=== PATIENT | male | born 1945 | race Caucasian/White ===

== ENCOUNTER 2024-11-27 14:32 | Emergency (ER) | payer MEDICARE, OTHER, SELFPAY ==
--- OUTSIDE RECORDS SUMMARY | 2024-11-27 14:34 | XMS_ITS | Encounter Summary ---
Author Organization [place] Address [address] [place] [address]. [place] [address] Care Team Providers Care Crack Off Person Name Role Phone No Ref-Primary, Physician Primary Care Provider Destinee Thao PA-C Unavailable [phone] Robert Jenkins MD Unavailable [phone] Robert Jenkins MD Unavailable Luciana Cage PA-C Unavailable Robert Jenkins MD Unavailable Reason for Visit * Reason Onset Date Comments Refill Request 12/01/2021 Sophie Encounter Details Date Type Department Care Team (Late st Contact Info) Description 12/01/2021 Telephone [facility] Heart [address] [place] [phone] Robert Jenkins MD [address] [facility] [address] [place], [place] [address] Refill Request (Nenitaqumarina) Social History Tobacco Use Types Packs/Day Years Used Date Smoking Tobacco: Never Smokeless Tobacco: Never Alcohol Use Standard Drinks/Week Comments Never 0 (1 standard drink = 0.6 oz pur e alcohol) Sex and Gender Information Value Date Recorded Sex Assigned at Not on file Legal Sex Male 3:50 PM CDT Gender Identity Not on file Sexual Orientation Not on file COVID-19 Exposure Response Date Recorded In the last month, have you been in contact with someone who was confirmed or suspected to have Coronavirus / COVID-19? Unable to assess 11/25/2021 10:56 AM SMOKING TOBACCO CUTTER OPERATOR documented as of this encounter Miscellaneous Notes * Telephone Encounter - MemeYelena eden - 12/01/2021 2:31 PM CST [facility] Call Center Phone Message May a detailed message be left on voicemail: yes Reason for Call: Medication Refill Request Has the patient contacted the pharmacy for the refill? Yes Name of medication being requested: Sophie Provider who prescribed the medication: Dr. Jenkins Pharmacy: [facility] [address] [facility], [place] - [address] Date medication is needed: 12/05/21 Action Taken: Message routed to: Other: [place] Travel Screening: Not Applicable ING TOBACCO CUTTER OPERATOR documented in this encounter Plan of Treatment Upcoming Encounters Date Type Department Care Team (Late st Contact Info) Description 11/28/2024 1:30 PM SMOKING TOBACCO CUTTER OPERATOR Office Visit [facility] [address] [facility] [address] [place] [phone] Robert Jenkins MD [address] [place] [id number] documented as of this encounter Visit Diagnoses Not on filedocumented in this encounter Care Teams Crack Off Person Relationship Specialty Start Date End Date No Ref-Primary, Physician PCP - General 07/01/21 Destinee Thao PA-C [address] [facility] [place] [id number] Assigned Heart and Vascular Provider 07/06/21 04/10/22 Robert Jenkins MD [address] [place] [id number] Cardiovascular Disease 11/25/21 Robert Jenkins MD [address] [place] [address] Assigned Heart and Vascular Provider 04/11/22 10/01/23 Luciana Cage PA-C [address] [place] [address] Assigned Heart and Vascular Provider 10/28/23 11/25/23 Robert Jenkins MD [address] [place] [address] Assigned Heart and Vascular Provider 11/26/23 documented as of this encounter
--- OUTSIDE RECORDS SUMMARY | 2024-11-27 14:34 | XMS_ITS | Encounter Summary ---
Author Organization [facility] [place] Address [address] [place] [address]. [place] [address] Care Team Providers Care City Carrier Assistant Name Role Phone No Ref-Primary, Physician Primary Care Provider Robert Jenkins MD Unavailable [phone] Robert Jenkins MD Unavailable [phone] Encounter Details Date Type Department Care Team (Late st Contact Info) Description 11/27/2024 9:30 AM WAREHOUSE ANALYST Lab 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; Nonrheumatic aortic valve stenosis Social History Tobacco Use Types Packs/Day Years Used Date Smoking Tobacco: Never Smokeless Tobacco: Never Alcohol Use Standard Drinks/Week Comments Never 0 (1 standard drink = 0.6 oz pur e alcohol) PHQ-2 Answer Date Recorded PHQ-2 Score 0 05/16/2024 Adolescent Education Answer Date Record ed Getting School Help Needed Not on file 06/26 Sex and Gender Information Value Date Recorded Sex Assigned at Not on file Legal Sex Male 3:50 PM CDT Gender Identity Not on file Sexual Orientation Not on file documented as of this encounter Plan of Treatment Upcoming Encounters Date Type Department Care Team (Late st Contact Info) Description 11/28/2024 1:30 PM WAREHOUSE ANALYST Office Visit 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 BASIC METABOLIC PANEL Routine 11/27/2024 9:25 AM WAREHOUSE ANALYST 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 valve stenosis documented in this encounter Results * ALT (11/27/2024 9:25 AM WAREHOUSE ANALYST) ALT 17 0 - 70 U/L 11/27/2024 10:23 AM WAREHOUSE ANALYST LABORATORY Blood STRUCTURE OF LEFT UPPER LIMB / Unknown Venipuncture / Unknown 11/27/2024 9:25 AM WAREHOUSE ANALYST 11/27/2024 9:25 AM WAREHOUSE ANALYST us Robert Jenkins MD LAB - BLOOD ORDERABLES Fin al Result LABORATORY [facility] Lab [address] Lab (1st floor, no room number) [place] [address], [facility] * (ABNORMAL) Basic metabolic panel (11/27/2024 9:25 AM WAREHOUSE ANALYST) Sodium 139 135 - 145 mmol/L 11/27/2024 10:23 AM WAREHOUSE ANALYST LABORATORY Potassium 4.2 3.4 - 5.3 mmol/L 11/27/2024 10:23 AM WAREHOUSE ANALYST RH LABORATORY Chloride 104 98 - 107 mmol/L 11/27/2024 10:23 AM WAREHOUSE ANALYST RH LABORATORY Carbon Dioxide (CO2) 25 22 - 29 mmol/L 11/27/2024 10:23 AM WAREHOUSE ANALYST LABORATORY Anion Gap 10 7 - 15 mmol/L 11/27/2024 10:23 AM WAREHOUSE ANALYST LABORATORY Urea Nitrogen 19.1 8.0 - 23.0 mg/dL 11/27/2024 10:23 AM WAREHOUSE ANALYST LABORATORY Creatinine 0.80 0.67 - 1.17 mg/dL 11/27/2024 10:23 AM WAREHOUSE ANALYST LABORATORY GFR Estimate 89 >60 mL/min/1.7 3m2 11/27/2024 10:23 AM WAREHOUSE ANALYST LABORATORY Comment:eGFR calculated usin g 2020 CKD-EPI equation. 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
--- OUTSIDE RECORDS SUMMARY | 2024-11-27 14:34 | XMS_ITS | Patient Health Record ---
Author Organization [facility] Megan vela Billing Info Address [address] [place], [place] [id number] Support Name Relationship Address Phone Leif Duval Guarantor Unknown Reason For Referral No Information Plan Of Treatment No Information Insurance Providers Payer Name Payer Address Payer Phone Subscriber Number Group Number Insured Name Patient Relationship to Insured Coverage Start Date Coverage End Date [place] [address] [address] [place], [place] [id number] Leif Duval Self - patient is the insured 7 [employer] [address] [place], [place] [id number] Leif Duval Self - patient is the insured 7
--- OUTSIDE RECORDS SUMMARY | 2024-11-27 14:34 | XMS_ITS | Encounter Summary ---
Author Organization [facility] Address [address] [facility] [place] [address] Care Team Providers Care Obstetrician/Gynecologist Name Role Phone No Ref-Primary, Physician Primary Care Provider Robert Jenkins MD Unavailable [phone] Robert Jenkins MD Unavailable [phone] Encounter Details Date Type Department Care Team (Latest Contact Info) Description 11/21/2024 Travel Social History Tobacco Use Types Packs/Day Years [...] st Contact Info) Description 11/28/2024 1:30 PM DOOR REPAIRER BUS Office Visit [facility] [address] [facility] [address] [place] [address] Robert Jenkins MD [address] [facility] [address] [place], [place] [address] documented as of this encounter Visit Diagnoses Not on filedocumented in this encounter Care Teams Obstetrician/Gynecologist Relationship Specialty Start Date End Date No Ref-Primary, Physician PCP - General 07/01/21 Robert Jenkins MD [address] [place] [address] Cardiovascular Disease 11/25/21 Robert Jenkins MD [address] [place] [address] Assigned Heart and Vascular Provider 11/26/23 documented as of this encounter
--- OUTSIDE RECORDS SUMMARY | 2024-11-27 14:34 | XMS_ITS | Encounter Summary ---
Author Organization [place] Address [address] [facility] [place] [address] Care Team Providers Care Institutional Nutrition Consultant Name Role Phone No Ref-Primary, Physician Primary Care Provider Robert Jenkins MD Unavailable [phone] Robert Jenkins MD Unavailable [phone] Encounter Details Date Type Department Care Team (Latest Contact Info) Description 11/27/2024 Travel Social History Tobacco Use Types Packs/Day [...] st Contact Info) Description 11/28/2024 1:30 PM OPTICAL LABORATORY MANAGER Office Visit [facility] [address] [facility] [address] [place] [address] Robert Jenkins MD [address] [facility] [address] [place], [place] [address] documented as of this encounter Visit Diagnoses Not on filedocumented in this encounter Care Teams Institutional Nutrition Consultant Relationship Specialty Start Date End Date No Ref-Primary, Physician PCP - General 07/01/21 Robert Jenkins MD [address] [place] [address] Cardiovascular Disease 11/25/21 Robert Jenkins MD [address] [place] [address] Assigned Heart and Vascular Provider 11/26/23 documented as of this encounter
--- OUTSIDE RECORDS SUMMARY | 2024-11-27 14:34 | XMS_ITS | Clinical Summary ---
Author Organization [place] Address [address] [place] [address] Care Team Providers Care [facility] Social Worker Name Role Phone No Ref-Primary, Physician Primary Care Provider Robert Jenkins MD Unavailable Robert Jenkins MD Unavailable Allergies No known active allergies Medications atorvastatin (LIPITOR) 40 MG tabletIndications :Coronary artery disease involving [place] coronary artery of [place] heart without angina pectoris Take 1 tablet (40 mg) by mouth daily Appointment required for further refills 90 tablet 3 4 Active sotalol HCl, AF, 80 MG TABSIndications:P aroxysmal atrial fibrillation (H) Take 1 tablet (80 mg) by mouth 3 times daily 270 tablet 3 4 Active apixaban ANTICOAGULANT (ELIQUIS ANTICOAGULANT) 5 MG tabletIndications :PAF (paroxysmal atrial fibrillation) (H) Take 1 tablet (5 mg) by mouth 2 times daily 180 tablet 3 4 Active Active Problems Problem Noted Date Diagnosed Date Impaired fasting glucose 04/02/2022 Pulmonary hypertension 04/02/2022 Coronary artery disease invo lving [place] coronary artery of [place] heart without angina pectoris Overview (06/02/2021): s/p CABG x5 2015: GARRIDO to LAD and diagonal, sequential SVG to 2 branches of OM2, SVG to RCA and MAZE + left atrial appendage ligation Paroxysmal atrial fibrillation Overview (06/02/2021): s/p cryomaze ablation Prostate cancer Nonrheumatic aortic valve stenosis Ascending aorta dilatation Nonrheumatic mitral valve regurgitation Tricuspid valve regurgitation, nonrheumatic NSTEMI (non-ST elevated myocardial infarction) Essential hypertension Mixed hyperlipidemia Osteoarthritis Encounters Date Type Department Care Team Description 11/27/2024 9:30 AM ROLL DOUGH DIVIDER Lab [facility] [address] [place] [phone] Coronary artery disease involving [place] coronary artery of [place] heart without angina pectoris; Nonrheumatic aortic valve stenosis 11/27/2024 Travel 11/23/[address] [place] [phone] Robert Jenkins MD Call to schedule test 11/21/2024 9:10 AM ROLL DOUGH DIVIDER - 11/21/2024 11:59 PM ROLL DOUGH DIVIDER Hospital Encounter [facility] [address] [place] [phone] Robert Jenkins MD Coronary artery disease involving [place] coronary artery of [place] heart without angina pectoris; Nonrheumatic aortic valve stenosis Discharge Disposition: Home or Self Care 11/21/2024 Travel from Last 3 Months Family History Relation Status Comments Father Mother Social History Tobacco Use Types Packs/Day Years Used Date Smoking Tobacco: Never Smokeless Tobacco: Never Tobacco Cessation:Counseling Given: Not Answered Alcohol Use Standard Drinks/Week Comments Never 0 [...] on file Sexual Orientation Not on file Last Filed Vital Signs Vital Sign Reading Time Taken Comments Blood Pressure 128/66 05/16/2024 12:30 PM CDT Pulse 51 05/16/2024 12:30 PM CDT Temperature - - Respiratory Rate - - Oxygen Saturation 96% 05/16/2024 12: 30 PM CDT Inhaled Oxygen Concentration - - Weight 85.1 kg (187 lb 11.2 oz) 024 12:30 PM CDT Height 188 cm (6' 2) 05/16/2024 12:30 PM CDT Body Mass Index 24.1 05/16/2024 12:30 PM CDT Plan of Treatment Upcoming Encounters Date Type Department Care Team (Late st Contact Info) Description 11/28/2024 1:30 PM ROLL DOUGH DIVIDER Office Visit [facility] [address] [place] [phone] Robert Jenkins MD [address] [place] [id number] Health Maintenance Due Date Last Done Comments ADVANCE CARE PLANNING 1945 ANNUAL REVIEW OF HM ORDERS 1945 ZOSTER IMMUNIZATION (1 of 2) 1994 DTAP/TDAP/TD IMMUNIZATION (1 - Tdap) 10/05/2003 10/04/2003 FALL RISK ASSESSMENT 2009 Pneumococcal Vaccine: 50+ Years (2 of 2 - PPSV23) 10/05/2016 08/10/2016 RSV VACCINE (1 - 1-dose 75+ series) 2019 MEDICARE ANNUAL WELLNESS VISIT 10/20/2019 10/20/2018 COVID-19 Vaccine ( - season) 2024 10/21/2021, 12/13/2020, 11/15/2020 INFLUENZA VACCINE (#1) 2024 , 08/06/2022, 07/14/2019, Additional history exists PHQ-2 (once per calendar year) 2024 05/16/2024, 05/24/2023 LIPID 05/15/2025 05/15/2024, 05/04, 04/02/2022, Additional history exists BMP 11/27/2025 11/27/2024, 05/04, 05/21/2023, Additional history exists GLUCOSE 11/27/2027 11/27/2024, 05/04, 05/21/2023, Additional history exists HPV IMMUNIZATION Aged Out No longer e ligible based on patient's age to complete this topic MENINGITIS IMMUNIZATION Aged Out No l onger eligible based on patient's age to complete this topic Procedures Procedure Name Priority Date/Time Associated Diagnosis Comments ALT Routine 11/27/2024 9:25 AM ROLL DOUGH DIVIDER Coronary artery disease involving [place] coronary artery of [place] heart without angina pectoris Nonrheumatic aortic valve stenosis BASIC METABOLIC PANEL Routine 11/27/2024 9:25 AM ROLL DOUGH DIVIDER Coronary artery disease involving [place] coronary artery of [place] heart without angina pectoris Nonrheumatic aortic valve stenosis ECHO COMPLETE Routine 11/21/2024 10:06 AM ROLL DOUGH DIVIDER Coronary artery disease involving [place] coronary artery of [place] heart without angina pectoris Nonrheumatic aortic valve stenosis LIPID PROFILE Routine 05/15/2024 9:03 AM CDT Coronary artery disease involving [place] coronary artery of [place] heart without angina pectoris from Last 3 Months or Most Recently Relevant to Health Maintenance Results * ALT (11/27/2024 9:25 AM ROLL DOUGH DIVIDER) ALT 17 0 - 70 U/L 11/27/2024 10:23 AM ROLL DOUGH DIVIDER LABORATORY Blood STRUCTURE OF LEFT UPPER LIMB / Unknown Venipuncture / Unknown 11/27/2024 9:25 AM ROLL DOUGH DIVIDER 11/27/2024 9:25 AM ROLL DOUGH DIVIDER Robert Jenkins MD LAB - BLOOD ORDERABLES Fin al Result LABORATORY [facility] [address] Lab (1st floor, no room number) [place] [address], [facility] * (ABNORMAL) Basic metabolic panel (11/27/2024 9:25 AM ROLL DOUGH DIVIDER) Sodium 139 135 - 145 mmol/L 11/27/2024 10:23 AM ROLL DOUGH DIVIDER LABORATORY Potassium 4.2 3.4 - 5.3 mmol/L 11/27/2024 10:23 AM ROLL DOUGH DIVIDER LABORATORY Chloride 104 98 - 107 mmol/L 11/27/2024 10:23 AM [facility] Carbon Dioxide (CO2) 25 22 - 29 mmol/L 11/27/2024 10:23 AM [facility] Anion Gap 10 7 - 15 mmol/L 11/27/2024 10:23 AM [facility] Urea Nitrogen 19.1 8.0 - 23.0 mg/dL 11/27/2024 10:23 AM [facility] Creatinine 0.80 0.67 - 1.17 mg/dL 11/27/2024 10:23 AM [facility] GFR Estimate 89 >60 mL/min/1.7 3m2 11/27/2024 10:23 AM [facility] Comment:eGFR calculated usin 2020 CKD-EPI equation. Calcium 9.3 8.8 - 10.4 mg/dL 11/27/2024 10:23 AM [facility] Glucose 104(H) 70 - 99 mg/dL 11/27/2024 10:23 AM [facility] Blood STRUCTURE OF LEFT UPPER LIMB / Unknown Venipuncture / Unknown 11/27/2024 9:25 AM ROLL DOUGH DIVIDER 11/27/2024 9:25 AM ROLL DOUGH DIVIDER Robert Jenkins MD LAB - BLOOD ORDERABLES Fin al Result [facility] Acute Care Lab [address] Lab (1st floor, no room number) [place] [address], [facility] * ECHO COMPLETE (11/21/2024 10:06 AM ROLL DOUGH DIVIDER) LVEF 55-60% CARDIOLOGY RESULTS Anatomical Region Laterality Modality Echocardiography 11/21/2024 9:20 AM ROLL DOUGH DIVIDER Narrative 11/21/2024 10:16 AM ROLL DOUGH DIVIDER [id number]^ANRDEA^FLO [facility] Echocardiography Laboratory [address] [place] [address] Name: SOFYA FREEMAN : 1945 Study Date: 11/21/2024 09:20 AM Age: 79 yrs Gender: Male Patient Location: [facility] Reason For Study: Coronary artery disease involving [place] coronary artery of joaquín Ordering Physician: ROBERT JENKINS Referring Physician: ROBERT JENKINS Performed By: Lyle Marvin RDCS BSA: 2.1 m2 Height: 74 in Weight: 180 lb BP: 137/87 mmHg Procedure Echocardiogram with two-dimensional, color and spectral Doppler. Interpretation Summary Left ventricular systolic function is normal.The visual ejection fraction is 55-60%.Septal motion is consistent with post-operative state. The right ventricular systolic function is normal. Moderate valvular aortic stenosis-peak aortic valve velocity 3.46 m/s, mean gradient 26 mmHg, aortic valve area 1.3 cm There is moderate (2+) aortic regurgitation. There is moderate (2+) tricuspid regurgitation. Pulmonary hypertension- RVSP 36 mm hg +RA. 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 Echo dated 05/09 2024, moderate aortic valve stenosis noted with mean gradients of 21 mmHg, moderate aortic regurgitation noted and ascending aorta was noted 4.7 cm Left Ventricle The left ventricle is normal in size. There is mild concentric left ventricular hypertrophy. Left ventricular systolic function is normal. The visual ejection fraction is 55-60%. Septal motion is consistent with post- operative state. Right Ventricle The right ventricle is normal size. The right ventricular systolic function is normal. Atria The left atrium is mildly dilated. Right atrial size is normal. There is no color Doppler evidence of an atrial shunt. Mitral Valve There is mild mitral annular calcification. There is mild (1+) mitral regurgitation. Tricuspid Valve There is moderate (2+) tricuspid regurgitation. The right ventricular systolic pressure is approximated at 36mmHg plus the right atrial pressure. Pulmonary hypertension. Aortic Valve There is moderate (2+) aortic regurgitation. Moderate valvular aortic stenosis. Peak aortic valve velocity 3.46 m/s, mean gradient 26 mmHg, aortic valve area 1.3 cm . Pulmonic Valve There is no pulmonic valvular stenosis. Vessels Aortic root dilatation is present. 3.9 cm. 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 Pericardium There is no pericardial effusion. Rhythm The rhythm was atrial fibrillation. MMode/2D Measurements & Calculations IVSd: 1.3 cm LVIDd: 4.5 cm LVIDs: 3.4 cm LVPWd: 1.1 cm FS: 25.5 % LV mass(C)d: 201.2 grams LV mass(C)dI: 96.8 grams/m2 Ao root diam: 3.9 cm LVOT diam: 2.4 cm LVOT area: 4.6 cm2 Ao root diam index Ht(cm/m): 2.1 Ao root diam index BSA (cm/m2): 1.9 LA Volume (BP): 76.9 ml LA Volume Index (BP): 37.0 ml/m2 RV Base: 3.6 cm RWT: 0.51 TAPSE: 1.8 cm Time Measurements Aortic HR: 52.0 BPM Doppler Measurements & Calculations MV E max daniel: 104.8 cm/sec Ao V2 max: 309.0 cm/sec Ao max P.3 mmHg Ao V2 mean: 216.2 cm/sec Ao mean P.8 mmHg Ao V2 VTI: 79.6 cm IGNACIO(I,D): 1.3 cm2 IGNACIO(V,D): 1.4 cm2 AI P1/2t: 667.9 msec LV V1 max P.5 mmHg LV V1 max: 94.0 cm/sec LV V1 VTI: 23.1 cm CO(LVOT): 5.5 l/min CI(LVOT): 2.6 l/min/m2 SV(LVOT): 105.8 ml SI(LVOT): 50.9 ml/m2 PA acc time: 0.10 sec TR max daniel: 256.3 cm/sec TR max P.3 mmHg AV Daniel Ratio (DI): 0.30 IGNACIO Index (cm2/m2): 0.64 E/E' av.1 Lateral E/e': 5.6 Medial E/e': 16.6 RV S Daniel: 12.5 cm/sec Report approved by: Rigo Guzman MD on 11/21/2024 10:16 AM Procedure Note Rigo Guzman MD - 11/21/2024 [id number]^ANDREA^ROBERT^[facility] Echocardiography Laboratory [address] [place] [address] Name: SOFYA FREEMAN : 1945 Study Date: 11/21/2024 09:20 AM Age: 79 yrs Gender: Male Patient Location: [facility] Reason For Study: Coronary artery disease involving [place] coronary arteryof joaquín Ordering Physician: ROBERT JENKINS Referring Physician: ROBERT JENKINS Performed By: Lyle Marvin RDCS BSA: 2.1 m2 Height: 74 in Weight: 180 lb BP: 137/87 mmHg Procedure Echocardiogram with two-dimensional, color and spectral Doppler. Interpretation Summary Left ventricular systolic function is normal.The visual ejection fractionis 55-60%.Septal motion is consistent with post-operative state. The right ventricular systolic function is normal. Moderate valvular aortic stenosis-peak aortic valve velocity 3.46 m/s,mean gradient 26 mmHg, aortic valve area 1.3 cm There is moderate (2+)aortic regurgitation. There is moderate (2+) tricuspid regurgitation. Pulmonary hypertension- RVSP 36 mm hg +RA. 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 Echo dated 05/09 2024, moderate aortic valve stenosis noted with mean gradients of 21 mmHg, moderate aortic regurgitation noted and ascendingaorta was noted 4.7 cm Left Ventricle The left ventricle is normal in size. There is mild concentric left ventricular hypertrophy. Left ventricular systolic function is normal.The visual ejection fraction is 55-60%. Septal motion is consistent withpost- operative state. Right Ventricle The right ventricle is normal size. The right ventricular systolicfunction is normal. Atria The left atrium is mildly dilated. Right atrial size is normal. There isno color Doppler evidence of an atrial shunt. Mitral Valve There is mild mitral annular calcification. There is mild (1+) mitral regurgitation. Tricuspid Valve There is moderate (2+) tricuspid regurgitation. The right ventricularsystolic pressure is approximated at 36mmHg plus the right atrial pressure.Pulmonary hypertension. Aortic Valve There is moderate (2+) aortic regurgitation. Moderate valvular aortic stenosis. Peak aortic valve velocity 3.46 m/s, mean gradient 26 mmHg,aortic valve area 1.3 cm . Pulmonic Valve There is no pulmonic valvular stenosis. Vessels Aortic root dilatation is present. 3.9 cm. 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 Pericardium There is no pericardial effusion. Rhythm The rhythm was atrial fibrillation. MMode/2D Measurements & Calculations IVSd: 1.3 cm LVIDd: 4.5 cm LVIDs: 3.4 cm LVPWd: 1.1 cm FS: 25.5 % LV mass(C)d: 201.2 grams LV mass(C)dI: 96.8 grams/m2 Ao root diam: 3.9 cm LVOT diam: 2.4 cm LVOT area: 4.6 cm2 Ao root diam index Ht(cm/m): 2.1 Ao root diam index BSA (cm/m2): 1.9 LA Volume (BP): 76.9 ml LA Volume Index (BP): 37.0 ml/m2 RV Base: 3.6 cm RWT: 0.51 TAPSE: 1.8 cm Time Measurements Aortic HR: 52.0 BPM Doppler Measurements & Calculations MV E max daniel: 104.8 cm/sec Ao V2 max: 309.0 cm/sec Ao max P.3 mmHg Ao V2 mean: 216.2 cm/sec Ao mean P.8 mmHg Ao V2 VTI: 79.6 cm IGNACIO(I,D): 1.3 cm2 IGNACIO(V,D): 1.4 cm2 AI P1/2t: 667.9 msec LV V1 max P.5 mmHg LV V1 max: 94.0 cm/sec LV V1 VTI: 23.1 cm CO(LVOT): 5.5 l/min CI(LVOT): 2.6 l/min/m2 SV(LVOT): 105.8 ml SI(LVOT): 50.9 ml/m2 PA acc time: 0.10 sec TR max daniel: 256.3 cm/sec TR max P.3 mmHg AV Daniel Ratio (DI): 0.30 IGNACIO Index (cm2/m2): 0.64 E/E' av.1 Lateral E/e': 5.6 Medial E/e': 16.6 RV S Daniel: 12.5 cm/sec Report approved by: Rigo Guzman MD on 11/21/2024 10:16 AM Robert Jenkins MD CV ECHO ORDERABLES Edited Result - Final * Lipid Profile (05/15/2024 9:03 AM CDT) Cholesterol 114 <200 mg/dL 05/15/2024 4:10 PM CDT [facility] Triglycerides 121 <150 mg/dL 05/15/2024 4:10 PM CDT [facility] Direct Measure HDL 42 >=40 mg/dL 2023 4:10 PM CDT [facility] LDL Cholesterol Calculated 48 <=100 mg/dL 05/15/2024 4:10 PM CDT [facility] Non HDL Cholesterol 72 <130 mg/dL 05/15/2024 4:10 PM CDT [facility] Patient Fasting > 8hrs? Yes 05/15/2024 4:10 PM CDT [facility] Blood STRUCTURE OF RIGHT UPPER LIMB / Unknown Venipuncture / Unknown 05/15/2024 9:03 AM CDT 05/15/2024 9:03 AM CDT Narrative [facility] - 05/15/2024 4:10 PM CDT Cholesterol Desirable: <200 mg/dL Triglycerides Normal: Less than 150 mg/dL Borderline High: 150-199 mg/dL High: 200-499 mg/dL Very High: Greater than or equal to 500 mg/dL Direct Measure HDL Female: Greater than or equal to 50 mg/dL Male: Greater than or equal to 40 mg/dL LDL Cholesterol Desirable: <100mg/dL Above Desirable: 100-129 mg/dL Borderline High: 130-159 mg/dL High: 160-189 mg/dL Very High: >= 190 mg/dL Non HDL Cholesterol Desirable: 130 mg/dL Above Desirable: 130-159 mg/dL Borderline High: 160-189 mg/dL High: 190-219 mg/dL Very High: Greater than or equal to 220 mg/dL us Robert Jenkins MD LAB - BLOOD ORDERABLES Fin al Result LABORATORY [facility] [place] [facility] [address], [address] [place] [address], [facility] LABORATORY [facility] [address] [facility] Lab (1st floor, no room number) [place] [address], [facility] from Last 3 Months or Most Recently Relevant to Health Maintenance Insurance MEDICARE COMMERCIAL [place] [id number] [place] [id number] MEDICARE COMMERCIAL Care Teams Hospital Social Worker Relationship Specialty Start Date End Date No Ref-Primary, Physician PCP - General 07/01/21 Robert Jenkins MD [address] [place] [id number] Cardiovascular Disease 11/25/21 Robert Jenkins MD [address] [place] [id number] Assigned Heart and Vascular Provider 11/26/23
--- OUTSIDE RECORDS SUMMARY | 2024-11-27 14:34 | XMS_ITS | Encounter Summary ---
Author Organization [place] Address [address] [place] [address] Care Team Providers Care Reservations Specialist Name Role Phone No Ref-Primary, Physician Primary Care Provider Robert Jenkins MD Unavailable [phone] Robert Jenkins MD Unavailable [phone] Reason for Referral * CV Testing (Routine) - Closed Specialty Diagnoses / Procedures Referred By Contac t Referred To Contact Cardiology Diagnoses Coronary artery disease involving [place] coronary artery of [place] heart without angina pectoris Nonrheumatic aortic valve stenosis Procedures Echocardiogram Complete ZZHC TTE W/DOPPLER, COMPLETE ZZHC ECHO COMPLETE W DOPPLER W CONTRAST ZZHC ECHO COMPLETE W DOPPLER W/O CONTRAST ZZHC IV PUSH SINGLE, INITIAL SUBSTANCE ZZHC US GUIDE FOR PERICARDIOCENTESIS ZZHC ECHO MYOCARD BX ZZC INJECTION, PERFLUTREN LIPID MICROSPHERES, PER ML ZZHC STATISTIC IV PUSH SINGLE INITIAL SUBSTANCE WA ECHO MYOCARD BX WA INJECTION, PERFLUTREN LIPID MICROSPHERES, PER ML WA TTE W/DOPPLER, COMPLETE WA IV PUSH SINGLE, INITIAL SUBSTANCE WA TTE W/DOPPLER, COMPLETE WA TTE W/DOPPLER, COMPLETE HC US GUIDE FOR PERICARDIOCENTESIS HC ECHO MYOCARD BX HC IV PUSH SINGLE, INITIAL SUBSTANCE HC STATISTIC IV PUSH SINGLE INITIAL SUBSTANCE HC ECHO COMPLETE W DOPPLER W CONTRAST HC ECHO COMPLETE W DOPPLER W/O CONTRAST Robert Jenkins MD [address] [place] [address] Phone: tel: fax: [facility] [address] [place] [address] [address] [place] [address] Phone: tel: fax: Referral ID Status Reason Start Date Expiration Date Visits Re quested Visits Authorized [id number] Closed 05/16/2024 05/16/2025 1 1 SINKING MACHINE OPERATOR Reason for Visit * CV Testing (Routine) - Closed Specialty Diagnoses / Procedures Referred By Contac t Referred To Contact Cardiology Diagnoses Coronary artery disease involving [place] coronary artery of [place] heart without angina pectoris Nonrheumatic aortic valve stenosis Procedures Echocardiogram Complete ZZHC TTE W/DOPPLER, COMPLETE ZZHC ECHO COMPLETE W DOPPLER W CONTRAST [facility] ECHO COMPLETE W DOPPLER W/O CONTRAST ZZHC IV PUSH SINGLE, INITIAL SUBSTANCE ZZHC US GUIDE FOR PERICARDIOCENTESIS ZZHC ECHO MYOCARD BX ZZC INJECTION, PERFLUTREN LIPID MICROSPHERES, PER ML ZZHC STATISTIC IV PUSH SINGLE INITIAL SUBSTANCE WA ECHO MYOCARD BX WA INJECTION, PERFLUTREN LIPID MICROSPHERES, PER ML WA TTE W/DOPPLER, COMPLETE WA IV PUSH SINGLE, INITIAL SUBSTANCE WA TTE W/DOPPLER, COMPLETE WA TTE W/DOPPLER, COMPLETE HC US GUIDE FOR PERICARDIOCENTESIS HC ECHO MYOCARD BX HC IV PUSH SINGLE, INITIAL SUBSTANCE HC STATISTIC IV PUSH SINGLE INITIAL SUBSTANCE HC ECHO COMPLETE W DOPPLER W CONTRAST HC ECHO COMPLETE W DOPPLER W/O CONTRAST Robert Jenkins MD [address] [place] [address] Phone: tel: fax: [facility] [address] [facility] [address] [place] [address] Phone: tel: fax: Referral ID Status Reason Start Date Expiration Date Visits Re quested Visits Authorized [id number] Closed 05/16/2024 05/16/2025 1 1 Encounter Details Date Type Department Care Team (Latest Contact Info) Description 11/21/2024 9:10 AM DIE SINKING MACHINE OPERATOR - 11/21/2024 11:59 PM DIE SINKING MACHINE OPERATOR Hospital Encounter [facility] [address] [facility] [address] [place] [phone] Robert Jenkins MD [address] [place] [id number] Coronary artery disease involving [place] band coronary artery of [place] heart without angina pectoris; Nonrheumatic aortic valve stenosis Discharge Disposition: Home or Self Care Social History Tobacco Use Types Packs/Day Years [...] on file documented as of this encounter Medications at Time of Discharge apixaban ANTICOAGULANT (ELIQUIS ANTICOAGULANT) 5 MG tabletIndications: PAF (paroxysmal atrial fibrillation) (H) Take 1 tablet (5 mg) by mouth 2 times daily 180 tablet 3 05/16/2024 atorvastatin (LIPITOR) 40 MG tabletIndications: Coronary artery disease involving [place] coronary artery of [place] heart without angina pectoris Take 1 tablet (40 mg) by mouth daily Appointment required for further refills 90 tablet 3 05/16/2024 sotalol HCl, AF, 80 MG TABSIndications:Pa roxysmal atrial fibrillation (H) Take 1 tablet (80 mg) by mouth 3 times daily 270 tablet 3 05/16/2024 documented as of this encounter Plan of Treatment Upcoming Encounters Date Type Department Care Team (Late st Contact Info) Description 11/28/2024 1:30 PM DIE SINKING MACHINE OPERATOR Office Visit [facility] [place] [address] [facility] [address] [place] [phone] Robert Jenkins MD [address] [place] [id number] documented as of this encounter Procedures Procedure Name Priority Date/Time Associated Diagnosis Comments ECHO COMPLETE Routine 11/21/2024 10:06 AM DIE SINKING MACHINE OPERATOR Coronary artery disease involving [place] coronary artery of [place] heart without angina pectoris Nonrheumatic aortic valve stenosis documented in this encounter Results * ECHO COMPLETE (11/21/2024 10:06 AM DIE SINKING MACHINE OPERATOR) LVEF 55-60% CARDIOLOGY RESULTS Anatomical Region Laterality Modality Echocardiography 11/21/2024 9:20 AM DIE SINKING MACHINE OPERATOR Narrative 11/21/2024 10:16 AM DIE SINKING MACHINE OPERATOR [id number]^ANDREA^ROBERT^[facility] Echocardiography Laboratory [address] [place] [address] Name: SOFYA FREEMAN : 1945 Study Date: 11/21/2024 09:20 AM Age: 79 yrs Gender: Male Patient Location: [facility] Reason For Study: Coronary artery disease involving [place] band coronary artery of joaquín Ordering Physician: ROBERT [...] Procedure Note Rigo Guzman MD - 11/21/2024 [id number]^ANDREA^ROBERT^[facility] Echocardiography Laboratory [address] [place] [id number] Name: SOFYA FREEMAN : 1945 Study Date: 11/21/2024 09:20 AM Age: 79 yrs Gender: Male Patient Location: [facility] Reason For Study: Coronary artery disease involving [place] band coronary arteryof joaquín Ordering Physician: ROEBRT JENKINS Referring Physician: ROBERT JENKINS Performed By: [...] CV ECHO ORDERABLES Edited Result - Final documented in this encounter Visit Diagnoses Diagnosis Coronary artery disease involving [place] coronary artery of [place] heart without angina pectoris Nonrheumatic aortic valve stenosis Aortic valve disorders documented in this encounter Care Teams Reservations Specialist Relationship Specialty Start Date End Date No Ref-Primary, Physician PCP - General 07/01/21 Robert Jenkins MD [address] [place] [id number] Cardiovascular Disease 11/25/21 Robert Jenkins MD [address] [place] [address] Assigned Heart and Vascular Provider 11/26/23 documented as of this encounter
--- OUTSIDE RECORDS SUMMARY | 2024-11-27 14:34 | XMS_ITS | Encounter Summary ---
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 Paroxysmal atrial fibrillation (H) Nonrheumatic aortic valve stenosis Ascending aorta dilatation Nonrheumatic mitral valve regurgitation Tricuspid valve regurgitation, nonrheumatic Pulmonary hypertension (H) Procedures Echocardiogram Complete ZZHC TTE W/DOPPLER, COMPLETE ZZHC ECHO COMPLETE W DOPPLER W CONTRAST ZZHC ECHO COMPLETE W DOPPLER W/O CONTRAST ZZHC IV PUSH SINGLE, INITIAL SUBSTANCE ZZHC US GUIDE FOR PERICARDIOCENTESIS ZZHC ECHO MYOCARD BX ZZC INJECTION, PERFLUTREN LIPID MICROSPHERES, PER ML ZZHC STATISTIC IV PUSH SINGLE INITIAL SUBSTANCE GA ECHO MYOCARD BX GA INJECTION, PERFLUTREN LIPID MICROSPHERES, PER ML GA TTE W/DOPPLER, COMPLETE GA IV PUSH SINGLE, INITIAL SUBSTANCE GA TTE W/DOPPLER, COMPLETE GA TTE W/DOPPLER, COMPLETE HC US GUIDE FOR PERICARDIOCENTESIS HC ECHO MYOCARD BX HC IV PUSH SINGLE, INITIAL SUBSTANCE HC STATISTIC IV PUSH SINGLE INITIAL SUBSTANCE HC ECHO COMPLETE W DOPPLER W CONTRAST HC ECHO COMPLETE W DOPPLER W/O CONTRAST Robert Jenkins MD [address] [place] [address] Phone: tel: fax: [facility] [address] [facility] [address] [place] [address] Phone: tel: fax: Referral ID Status Reason Start Date Expiration Date Visits Re quested Visits Authorized Closed 05/21/2023 04/18/2024 1 1 * Consultation (Routine: Next available opening) - Closed Specialty Diagnoses / Procedures Referred By Contac t Referred To Contact Cardiovascular Disease Diagnoses 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 If you have concerns about scheduling, please call [phone]. Comments [facility] will call you to coordinate your care as prescribed by your provider. If you have concerns about scheduling, please call [phone]. Reason for Visit * Reason Onset Date Comments Orders 04/19/2023 Echo needs to be extended Encounter Details Date Type Department Care Team (Late st Contact Info) Description 04/19/2023 Telephone [facility] [place] [address] [facility] [address] [place] [address] Robert Jenkins MD [address] [place] [address] Orders (Echo needs to be extended) Social History Tobacco Use Types Packs/Day Years [...] on file documented as of this encounter Miscellaneous Notes * Telephone Encounter - Mellisa Santana RN - 04/19/2023 11:16 AM CDT New orders placed for labs, EKG, echo and KEENA follow up. Routed back to scheduling to arrange. * Telephone Encounter - Lynn Oviedo - 04/19/2023 10:54 AM CDT [facility] Call Center Phone Message May a detailed message be left on voicemail: yes Reason for Call: Order(s): Other: Reason for requested: Echo order needs to be extended Date needed: 04/19/23 Provider name: Andrea Patient called to schedule an echo, fasting labs, an EKG, and a follow up. Please extend the echo order and call patient back to further coordinate appts. Thank you. Action Taken: Message routed to: Other: Cardiology Travel Screening: Not Applicable Thank you! 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 Paroxysmal atrial fibrillation (H) Essential hypertension Mixed hyperlipidemia Nonrheumatic aortic valve stenosis Ascending aorta dilatation Nonrheumatic mitral valve regurgitation Tricuspid valve regurgitation, nonrheumatic Expected: 04/26/2023 (Approximate), Expires: 04/19/2024 documented as of this encounter Results * ECHO COMPLETE (05/21/2023 9:08 AM CDT) LVEF 50-55% CARDIOLOGY RESULTS Anatomical Region Laterality Modality Echocardiography 05/21/2023 8:39 AM CDT Narrative 05/21/2023 10:32 AM CDT [id number]^ANDREA^ROBERT^[facility] Echocardiography Laboratory [address] [place] [address] Name: SOFYA FREEMAN : 1945 Study Date: 05/21/2023 08:39 AM Age: 78 yrs Gender: Male Patient Location: [facility] [address] Reason For Study: Coronary artery disease involving iroquois coronary artery of joaquín Ordering Physician: ROBERT JENKINS Referring Physician: ROBERT JENKINS Performed By: Katerina Hu BSA: 2.1 m2 Height: 74 in Weight: 191 lb HR: 51 BP: 151/70 mmHg Procedure Complete Echo Adult. Interpretation Summary Left ventricular systolic function is borderline reduced. The visual ejection fraction is 50-55%. Endocardial borders not well visualized, contrast use was declined, on some views the basal inferior and apex appear mildly hypokinetic. Sensitivity limited. The right ventricle is mildly dilated. The right ventricular systolic function is borderline reduced Aortic valve morphology is not well visualized, however it is heavily calcified. Moderate aortic stenosis, Vmax 2.9 m/s, mean gradient 20 mmHg, IGNACIO 1.3 cm2, DI 0.3. SVi 47 cc/m2. Moderate to mod-severe (2-3+) aortic regurgitation. Moderate to mod-severe (2-3+) tricuspid regurgitation. Mild (1+) pulmonic valvular regurgitation. Mild to moderate (1-2+) mitral regurgitation. The inferior vena cava was normal in size with preserved respiratory variability. The ascending aorta is Moderately dilated. Max diameter of the visualized portion 4.7 cm. This study was compared to a TTE from 04/02/2022. Valvuar dysfunction has progressed. Ascending aorta now measures 4.7 cm. Left Ventricle The left ventricle is normal in size. There is normal left ventricular wall thickness. Left ventricular systolic function is borderline reduced. The visual ejection fraction is 50-55%. Grade I or early diastolic dysfunction. Endocardial borders not well visualized, contrast use was declined, on some views the basal inferior and apex appear mildly hypokinetic. Sensitivity limited. Right Ventricle The right ventricle is mildly dilated. The right ventricular systolic function is borderline reduced. Atria The left atrium is mildly dilated. The right atrium is mildly dilated. Mitral Valve There is mild mitral annular calcification. There is mild to moderate (1-2+) mitral regurgitation. Tricuspid Valve There is moderate to mod-severe (2-3+) tricuspid regurgitation. The right ventricular systolic pressure is approximated at 28.7 mmHg plus the right atrial pressure. Aortic Valve Aortic valve morphology is not well visualized, however it is heavily calcified. There is moderate to mod-severe (2-3+) aortic regurgitation. Moderate aortic stenosis, Vmax 2.9 m/s, mean gradient 20 mmHg, IGNACIO 1.3 cm2, DI 0.3. SVi 47 cc/m2. Pulmonic Valve There is mild (1+) pulmonic valvular regurgitation. Vessels Mild aortic root dilatation. The ascending aorta is Moderately dilated. Max diameter of the visualized portion 4.7 cm. The inferior vena cava was normal in size with preserved respiratory variability. Pericardium There is no pericardial effusion. MMode/2D Measurements & Calculations IVSd: 0.96 cm LVIDd: 5.0 cm LVIDs: 3.9 cm LVPWd: 1.0 cm IVC diam: 1.7 cm FS: 21.2 % LV mass(C)d: 179.7 grams LV mass(C)dI: 84.3 grams/m2 Ao root diam: 3.9 cm asc Aorta Diam: 4.7 cm LVOT diam: 2.4 cm LVOT area: 4.5 cm2 LA Volume (BP): 73.9 ml LA Volume Index (BP): 34.7 ml/m2 RV Base: 4.3 cm RWT: 0.41 TAPSE: 1.7 cm Doppler Measurements & Calculations MV E max daniel: 75.4 cm/sec MV A max daniel: 39.3 cm/sec MV E/A: 1.9 MV dec time: 0.22 sec Ao V2 max: 290.0 cm/sec Ao max P.0 mmHg Ao V2 mean: 207.0 cm/sec Ao mean P.0 mmHg Ao V2 VTI: 76.0 cm IGNACIO(I,D): 1.3 cm2 IGNACIO(V,D): 1.4 cm2 AI P1/2t: 599.4 msec LV V1 max P.3 mmHg LV V1 max: 87.4 cm/sec LV V1 VTI: 21.9 cm MR PISA: 1.0 cm2 MR ERO: 0.06 cm2 MR volume: 13.7 ml SV(LVOT): 99.3 ml SI(LVOT): 46.6 ml/m2 PA acc time: 0.10 sec TR max daniel: 268.0 cm/sec TR max P.7 mmHg AV Daniel Ratio (DI): 0.30 IGNACIO Index (cm2/m2): 0.61 E/E' av.9 Lateral E/e': 5.0 Medial E/e': 8.8 RV S Daniel: 11.4 cm/sec Report approved by: Hieu Rosas 05/21/2023 10:32 AM Procedure Note Hardy Sandoval MD - 05/21/2023 [id number]^ANDREA^ROBERT^[facility] Echocardiography Laboratory [address] [place] [id number] Name: SOFYA FREEMAN : 1945 Study Date: 05/21/2023 08:39 AM Age: 78 yrs Gender: Male Patient Location: [facility] Reason For Study: Coronary artery disease involving iroquois coronary arteryof joaquín Ordering Physician: ROBERT JENKINS Referring Physician: ROBERT JENKINS Performed By: Katerina Hu BSA: 2.1 m2 Height: 74 in Weight: 191 lb HR: 51 BP: 151/70 mmHg Procedure Complete Echo Adult. Interpretation Summary Left ventricular systolic function is borderline reduced. The visualejection fraction is 50-55%. Endocardial borders not well visualized, contrast use was declined, onsome views the basal inferior and apex appear mildly hypokinetic. Sensitivity limited. The right ventricle is mildly dilated. The right ventricular systolicfunction is borderline reduced Aortic valve morphology is not well visualized, however it is heavily calcified. Moderate aortic stenosis, Vmax 2.9 m/s, mean gradient 20 mmHg,IGNACIO 1.3 cm2, DI 0.3. SVi 47 cc/m2. Moderate to mod-severe (2-3+) aortic regurgitation. Moderate to mod-severe (2-3+) tricuspid regurgitation. Mild (1+) pulmonic valvular regurgitation. Mild to moderate (1-2+) mitral regurgitation. The inferior vena cava was normal in size with preserved respiratory variability. The ascending aorta is Moderately dilated. Max diameter of thevisualized portion 4.7 cm. This study was compared to a TTE from 04/02/2022. Valvuar dysfunction has progressed. Ascending aorta now measures 4.7 cm. Left Ventricle The left ventricle is normal in size. There is normal left ventricularwall thickness. Left ventricular systolic function is borderline reduced. The visual ejection fraction is 50-55%. Grade I or early diastolicdysfunction. Endocardial borders not well visualized, contrast use was declined, onsome views the basal inferior and apex appear mildly hypokinetic. Sensitivity limited. Right Ventricle The right ventricle is mildly dilated. The right ventricular systolicfunction is borderline reduced. Atria The left atrium is mildly dilated. The right atrium is mildly dilated. Mitral Valve There is mild mitral annular calcification. There is mild to moderate(1-2+) mitral regurgitation. Tricuspid Valve There is moderate to mod-severe (2-3+) tricuspid regurgitation. Theright ventricular systolic pressure is approximated at 28.7 mmHg plus theright atrial pressure. Aortic Valve Aortic valve morphology is not well visualized, however it is heavily calcified. There is moderate to mod-severe (2-3+) aortic regurgitation. Moderate aortic stenosis, Vmax 2.9 m/s, mean gradient 20 mmHg, IGNACIO 1.3cm2, DI 0.3. SVi 47 cc/m2. Pulmonic Valve There is mild (1+) pulmonic valvular regurgitation. Vessels Mild aortic root dilatation. The ascending aorta is Moderately dilated.Max diameter of the visualized portion 4.7 cm. The inferior vena cava wasnormal in size with preserved respiratory variability. Pericardium There is no pericardial effusion. MMode/2D Measurements & Calculations IVSd: 0.96 cm LVIDd: 5.0 cm LVIDs: 3.9 cm LVPWd: 1.0 cm IVC diam: 1.7 cm FS: 21.2 % LV mass(C)d: 179.7 grams LV mass(C)dI: 84.3 grams/m2 Ao root diam: 3.9 cm asc Aorta Diam: 4.7 cm LVOT diam: 2.4 cm LVOT area: 4.5 cm2 LA Volume (BP): 73.9 ml LA Volume Index (BP): 34.7 ml/m2 RV Base: 4.3 cm RWT: 0.41 TAPSE: 1.7 cm Doppler Measurements & Calculations MV E max daniel: 75.4 cm/sec MV A max daniel: 39.3 cm/sec MV E/A: 1.9 MV dec time: 0.22 sec Ao V2 max: 290.0 cm/sec Ao max P.0 mmHg Ao V2 mean: 207.0 cm/sec Ao mean P.0 mmHg Ao V2 VTI: 76.0 cm IGNACIO(I,D): 1.3 cm2 IGNACIO(V,D): 1.4 cm2 AI P1/2t: 599.4 msec LV V1 max P.3 mmHg LV V1 max: 87.4 cm/sec LV V1 VTI: 21.9 cm MR PISA: 1.0 cm2 MR ERO: 0.06 cm2 MR volume: 13.7 ml SV(LVOT): 99.3 ml SI(LVOT): 46.6 ml/m2 PA acc time: 0.10 sec TR max daniel: 268.0 cm/sec TR max P.7 mmHg AV Daniel Ratio (DI): 0.30 IGNACIO Index (cm2/m2): 0.61 E/E' av.9 Lateral E/e': 5.0 Medial E/e': 8.8 RV S Daniel: 11.4 cm/sec Report approved by: Hieu Rosas 05/21/2023 10:32 AM Robert Jenkins MD CV ECHO ORDERABLES Edited Result - Final * ALT (05/21/2023 8:10 AM CDT) [facility] Signature ALT 15 0 - 70 U/L 05/21/2023 9:39 AM CDT [facility] Comment:Reference intervals for this test were updated on 03/15/2023 to more accurately reflect our healthy population. There may be differences in the flagging of prior results with similar values performed with this method. Interpretation of those prior results can be made in the context of the updated reference intervals. Blood STRUCTURE OF RIGHT UPPER LIMB / Unknown Venipuncture / Unknown 05/21/2023 8:10 AM CDT 05/21/2023 8:13 AM CDT us Robert Jenkins MD LAB - BLOOD ORDERABLES Fin al Result LABORATORY [facility] Lab [address] Lab (1st floor, no room number) [place] [address], [facility] [phone] * (ABNORMAL) Lipid Profile (05/21/2023 8:10 AM CDT) Cholesterol 135 <200 mg/dL 05/21/2023 11:24 AM CDT [facility] Triglycerides 161(H) <150 mg/dL 05/21/2023 11:24 AM CDT [facility] Direct Measure HDL 43 >=40 mg/dL 05/21/2023 11:24 AM CDT [facility] LDL Cholesterol Calculated 60 <=100 mg/dL 05/21/2023 11:24 AM CDT [facility] Non HDL Cholesterol 92 <130 mg/dL 05/21/2023 11:24 AM CDT [facility] Blood STRUCTURE OF RIGHT UPPER LIMB / Unknown Venipuncture / Unknown 05/21/2023 8:10 AM CDT 05/21/2023 8:13 AM CDT Narrative [facility] - 05/21/2023 11:24 AM CDT Cholesterol Desirable: <200 mg/dL Triglycerides Normal: [...] LAB - BLOOD ORDERABLES Fin al Result [facility] [address], [address] [place] [address], [facility] [phone] * (ABNORMAL) Basic metabolic panel (05/21/2023 8:10 AM CDT) Sodium 139 136 - 145 mmol/L 05/21/2023 9:39 AM CDT LABORATORY Potassium 4.7 3.4 - 5.3 mmol/L 05/21/2023 9:39 AM CDT LABORATORY Chloride 102 98 - 107 mmol/L 05/21/2023 9:39 AM CDT LABORATORY Carbon Dioxide (CO2) 28 22 - 29 mmol/L 05/21/2023 9:39 AM CDT LABORATORY Anion Gap 9 7 - 15 mmol/L 05/21/2023 9:39 AM CDT LABORATORY Urea Nitrogen 19.1 8.0 - 23.0 mg/dL 05/21/2023 9:39 AM CDT LABORATORY Creatinine 0.77 0.67 - 1.17 mg/dL 05/21/2023 9:39 AM CDT LABORATORY Calcium 9.6 8.8 - 10.2 mg/dL 05/21/2023 9:39 AM CDT LABORATORY Glucose 111(H) 70 - 99 mg/dL 05/21/2023 9:39 AM CDT LABORATORY GFR Estimate >90 >60 mL/min/1.7 3m2 05/21/2023 9:39 AM CDT LABORATORY Blood STRUCTURE OF RIGHT UPPER LIMB / Unknown Venipuncture / Unknown 05/21/2023 8:10 AM CDT 05/21/2023 8:13 AM CDT us Robert Jenkins MD LAB - BLOOD ORDERABLES Fin al Result LABORATORY [facility] [address] Lab (1st floor, no room number) [place] [address], [facility] [phone] documented in this encounter Visit Diagnoses Diagnosis 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- Primary Paroxysmal atrial fibrillation (H) Atrial fibrillation Essential hypertension Unspecified essential hypertension Mixed hyperlipidemia Nonrheumatic aortic valve stenosis Aortic valve disorders Ascending aorta dilatation Thoracic aortic ectasia Nonrheumatic mitral valve regurgitation Tricuspid valve regurgitation, nonrheumatic Tricuspid valve disorders, specified as nonrheumatic Pulmonary hypertension (H) 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 Paroxysmal atrial fibrillation (H) Atrial fibrillation Nonrheumatic aortic valve stenosis Aortic valve disorders Ascending aorta dilatation Thoracic aortic ectasia Nonrheumatic mitral valve regurgitation Tricuspid valve regurgitation, nonrheumatic Tricuspid valve disorders, specified as nonrheumatic Pulmonary hypertension (H) Other chronic pulmonary heart diseases documented in this encounter Care Teams Manager Sales Relationship Specialty Start Date End Date No Ref-Primary, Physician PCP - General 07/01/21 Robert Jenkins MD [address] [place] [id number] Cardiovascular Disease 11/25/21 Robert Jenkins MD [address] [place] [address] Assigned Heart and Vascular Provider 04/11/22 10/01/23 Luciana Cage PA-C [address] [place] [address] Assigned Heart and Vascular Provider 10/28/23 11/25/23 Robert Jenkins MD [address] [place] [address] Assigned Heart and Vascular Provider 11/26/23 documented as of this encounter
--- OUTSIDE RECORDS SUMMARY | 2024-11-27 14:34 | XMS_ITS | Encounter Summary ---
Author Organization [facility] Address [address] [place] [address]. [place] [address] Care Team Providers Care Packaging Technician Name Role Phone No Ref-Primary, Physician Primary Care Provider Robert Jenkins MD Unavailable [phone] Robert Jenkins MD Unavailable Reason for Visit * Reason Onset Date Comments Call to schedule test 11/23/2024 Encounter Details Date Type Department Care Team (Late st Contact Info) Description 11/23/2024 Telephone [facility] [place] [address] [facility] [address] [place] [address] Robert Jenkins MD [address] [facility] [address] [place] [address] Call to schedule test Social History Tobacco Use Types Packs/Day Years [...] encounter Miscellaneous Notes * Telephone Encounter - Tala Beauchamp - 11/23/2024 3:01 PM CST 1st attempt- Left voicemail for the patient to call back and schedule the following: Appointment type: Testing only- No clinic visit Provider: Dr Jenkins Return date: 11/24 or 11/27 Additional appointment(s) needed: Additonal Notes: Pt needs fasted labs either 11/24 or 11/27- CANNOT HAVE ON 11/28 or later- pt has provider appt 11/28- Specialty phone number: [phone] [employer] documented in this encounter Plan of Treatment Upcoming Encounters Date Type Department Care Team (Late st Contact Info) Description 11/28/2024 1:30 PM MANAGER PLANT Office Visit [facility] [id number] [place] [address] [address] [place] [phone] Robert Jenkins MD [address] [place] [id number] documented as of this encounter Visit Diagnoses Not on filedocumented in this encounter Care Teams Packaging Technician Relationship Specialty Start Date End Date No Ref-Primary, Physician PCP - General 07/01/21 Robert Jenkins MD [address] [place] [id number] Cardiovascular Disease 11/25/21 Robert Jenkins MD [address] [place] [id number] Assigned Heart and Vascular Provider 11/26/23 documented as of this encounter
--- OUTSIDE RECORDS SUMMARY | 2024-11-27 14:34 | XMS_ITS | Clinical Summary ---
Author Organization [facility] Address [address] [place] [address] Care Team Providers Care Stage Builder Name Role Phone Unavailable Primary Care Provider Unavailabl e Source Comments Patient records contain information from all sites at [facility]. For routine questions regarding patient records, call [phone] during business hours, M-F 8:00 AM - 5:00 PM Central Time. Record requests for emergency care only can be directed to [phone] at any time.[facility] Allergies No known active allergies Medications apixaban (ELIQUIS) 5 mg tablet Take 1 tablet by mouth 2 (two) times a day. 04/08/2021 Active aspirin 81 mg chewable tablet Chew 1 tablet daily. 07/28/2019 Active sotaloL (BETAPACE) 80 mg tablet Take 1 tablet by mouth 3 (three) times a day. 04/08/2021 Active atorvastatin (LIPITOR) 40 mg tablet Take 40 mg by mouth. 10/20/2018 Active sotaloL (BETAPACE) 80 mg tablet Take 80 mg by mouth. 05/11/2022 Active apixaban (ELIQUIS) 5 mg tablet Take 5 mg by mouth. 06/11/2022 Active atorvastatin (LIPITOR) 40 mg tablet Take 40 mg by mouth. 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 Prostate measures about 30 g, but is firm with a left-sided nodule. 08/01/2019 No change in voiding habits noted. 04/05/2020 Patient pleased with voiding habits, status post IMRT. Atrial Fibrillation Paroxysmal 08/10/2017 Hyperbilirubinemia 07/15/2017 Elevated Prostate-Specific Antigen 05/07/2017 Myocardial Infarction Old 03/08/2017 Overview (11/06/2022): 07/14/2015 Cardiomyopathy 03/07/2017 PreDiabetes 02/05/2017 Presence Of Aortocoronary Bypass Graft 6 Overview (11/06/2022): GARRIDO to the LAD and diagonal, a separate SVG that sequentially went to 2 obtuse marginal branches, SVG to the RCA,left atrial appendage excision and left atrial CryoMaze procedure/ [facility] Nonrheumatic Aortic Valve Insufficiency 10/29/19 16 Localized Enlarged Lymph Nodes 08/16/2015 Social History Tobacco Use Types Packs/Day Years Used Date Smoking Tobacco: Never Assessed Dental Answer Date Recorded Dental: Regular Dentist Unknown 08/10/20 21 Sex and Gender Information Value Date Recorded Sex Assigned at Not on file 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 Gender Identity Not on file Sexual Orientation Not on file Plan of Treatment Health Maintenance Due Date Last Done Comments Office Visit for Blood Pressure Check / Re-check 1945 DTaP,Tdap,and Td Vaccines (1 - Tdap) 1963 Zoster Vaccines (1 of 2) 1994 Pneumococcal vaccine (50+ years) (2 of 2 - PPSV23) 10/05/2016 08/10/2016 RSV vaccine - (32-36 weeks) or 60+ years (1 - 1-dose 75+ series) 2019 Fasting Glucose for Diabetes Screening 05/21/2024 05/21/2023, 04/02/2022, 07/01/2021 COVID-19 Vaccine ( season) 2024 10/21/2021, 12/13/2020, 11/15/2020 Influenza Vaccine (#1) 2024 , 08/06/2022, 07/14/2019, Additional history exists Depression Screening (Annual PHQ-2) 10/04/2024 Fall Risk Screen (Annual) 10/04/2024 IPV Vaccines Aged Out No longer eligi ble based on patient's age to complete this topic Insurance MEDICARE
--- OUTSIDE RECORDS SUMMARY | 2024-11-27 14:34 | XMS_ITS | Clinical Summary ---
Author Organization [facility] Address [address] [place] [id number] Care Team Providers Care Metal Hanging Supervisor Name Role Phone Pcp, No Primary Care Provider Unavailabl e Allergies No known active allergies Medications Eliquis 5 mg tablet 05/12/2021 Active sotaloL (BETAPACE) 80 mg tablet Take by mouth. Active atorvastatin (LIPITOR) 40 mg tablet Take 40 mg by mouth. Active Active Problems Problem Noted Date Diagnosed Date Paroxysmal atrial fibrillation 08/24/2021 Overview (08/24/2021): History of ablation but then recurrent Coronary artery disease invo lving coronary bypass graft of sun'aq heart without angina pectoris 08/24/2021 Overview (08/24/2021): Patient sees Dr. Jenkins. 1st stent 2004. 5v CABG 2014 Hypertension 08/24/2021 Hyperlipidemia 08/24/2021 Immunizations Name Administration Dates Next Due Influenza, High-dose Quadrivalent Inactivated Pneumococcal conj 13-Valent (Prevnar 13) 016 Td (Age >=7 Years) 10/04/2003 Social History Tobacco Use Types Packs/Day Years Used Date Smoking Tobacco: Never Assessed Sex and Gender Information Value Date Recorded Sex Assigned at Not on file Legal Sex Male 6:47 AM NARROW FABRIC CALENDERER Gender Identity Not on file Sexual Orientation Not on file Obstetrics History Last Filed Vital Signs Vital Sign Reading Time Taken Comments Blood Pressure 139/79 01/06/2023 7:42 AM CDT Pulse 60 01/06/2023 7:42 AM CDT Temperature 36.5 C (97.7 F) 01/06/2023 7:42 AM CDT Respiratory Rate 16 01/06/2023 7:42 AM CDT Oxygen Saturation 99% 01/06/2023 7:42 AM CDT Inhaled Oxygen Concentration - - Weight 87.5 kg (193 lb) 08/24/2021 12:28 PM NARROW FABRIC CALENDERER Height 188 cm (6' 2) 08/10/2021 10:31 AM NARROW FABRIC CALENDERER Body Mass Index 24.78 08/10/2021 10:31 AM NARROW FABRIC CALENDERER Plan of Treatment Health Maintenance Due Date Last Done Comments Tdap 1955 Depression screening for age 12+ 1956 BMI (ht and wt on same day) for age 18+ 1962 Zoster (shingles) series for age 50+ (1 of 2) 1994 Tetanus booster 10/04/2013 10/04/2003 Pneumococcal series for age 50+ (2 of 2 - PPSV23) 10/05/2016 08/10/2016 RSV vaccine for adults or pr egnancy (1 - 1-dose 75+ series) 2019 COVID-19 vaccine series ( season) 2024 10/21/2021, 12/13/2020, 11/15/2020 Influenza for age 65+ 06/04/2024 08/06/2022 Insurance MEDICARE PART A HB ONLY MEDICARE PART B HB ONLY COMMERCIAL MEDICARE PB ONLY Care Teams Metal Hanging Supervisor Relationship Specialty Start Date End Date Pcp, No . PCP - General 08/10/21
--- OUTSIDE RECORDS SUMMARY | 2024-11-27 14:35 | XMS_ITS | Encounter Summary ---
Author Organization [facility] Address [address] [place] [address]. [place] [address] Care Team Providers Care Engineering Program Analyst Name Role Phone No Ref-Primary, Physician Primary Care Provider Robert Jenkins MD Unavailable Robert Jenkins MD Unavailable Luciana Cage PA-C Unavailable Roebrt Jenkins MD Unavailable [phone] Reason for Visit * Reason Onset Date Comments Refill Request 08/03/2023 sotalol HCl, AF, 80 MG TABS Encounter Details Date Type Department Care Team (Late st Contact Info) Description 08/03/2023 Telephone [facility] [address] [place] [address] Robert Jenkins MD [address] [facility] [address] [place] [id number] Refill Request (sotalol HCl, AF, 80 MG TABS) Social History Tobacco Use Types Packs/Day Years Used Date Smoking Tobacco: Never Smokeless Tobacco: Never Alcohol Use Standard Drinks/Week Comments Never 0 (1 standard drink = 0.6 oz pur e alcohol) PHQ-2 Answer Date Recorded PHQ-2 Score 0 05/24/2023 Adolescent Education Answer Date Record ed Getting School Help Needed Not on file 06/26 Sex and Gender Information Value Date Recorded Sex Assigned at Not on file Legal Sex Male 3:50 PM CDT Gender Identity Not on file Sexual Orientation Not on file documented as of this encounter Miscellaneous Notes * Telephone Encounter - Lynn Oviedo - 08/03/2023 2:47 PM CDT [facility] Call Center Phone Message May a detailed message be left on voicemail: yes Reason for Call: Medication Refill Request Has the patient contacted the pharmacy for the refill? Yes Name of medication being requested: sotalol HCl, AF, 80 MG TABS Provider who prescribed the medication: [id number] - [place], [place] - [address] Date medication is needed: 08/03/23 Action Taken: Message routed to: Other: Cardiology Travel Screening: Not Applicable Thank you! [facility] documented in this encounter Plan of Treatment Upcoming Encounters Date Type Department Care Team (Late st Contact Info) Description 11/28/2024 1:30 PM TROUSSEAU CONSULTANT Office Visit [facility] [address] [facility] [address] [place] [phone] Robert Jenkins MD [address] [place] [id number] documented as of this encounter Visit Diagnoses Not on filedocumented in this encounter Care Teams Engineering Program Analyst Relationship Specialty Start Date End Date No Ref-Primary, Physician PCP - General 07/01/21 Robert Jenkins MD [address] [place] [id number] Cardiovascular Disease 11/25/21 Robert Jenkins MD [address] [place] [id number] Assigned Heart and Vascular Provider 04/11/22 10/01/23 Luciana Cage PA-C [address] [address] Assigned Heart and Vascular Provider 10/28/23 11/25/23 Robert Jenkins MD [address] [place] [address] Assigned Heart and Vascular Provider 11/26/23 documented as of this encounter
[2024-11-27 14:43] VITALS: BP 153/74; PULSE 57; RESP 18; TEMP 36.1; O2SAT 99; BMI 23.4
--- NOTE | 2024-11-27 15:33 | ED_ITS ---
HPI - Abdominal Pain General Time Seen by Provider: 15:33 Date Seen: 11/27/24 Chief Complaint: Abdominal Pain Stated Complaint: Lower RT Abdominal pain Time Seen by Provider: 11/27/24 14:50 Source: patient Mode of arrival: ambulatory Limitations: no limitations History of Present Illness HPI narrative: Mr. Duval is a very pleasant 79-year-old gentleman with a history of chronic anticoagulation secondary to atrial fibrillation, bypass many years ago who comes to the emergency room today for evaluation regarding right abdominal pain with radiation into his back. Patient notes that he had an echocardiogram and blood work this morning per his yearly routine. He decided to go to breakfast at [place] and approximately 1 hour later had the onset of some heartburn. This was quickly followed by pain in the right upper quadrant wrapping around to his back. He notes that he is having a hard time getting comfortable. He has not had gallstones in the past. He notes that he is also feeling like he has possibly urinary tract infection with some pressure when urinating. He has not had fever or chills. No known trauma. He has not been vomiting. Upon further discussion patient notes that over the past month or so he has had more heartburn epigastric discomfort when eating. Related Data Home Medications ?Medication ?Instructions ?Recorded ?Confirmed apixaban 5 mg tablet (Eliquis) 5 mg PO BID 04/02/23 11/27/24 atorvastatin 40 mg tablet 40 mg PO DAILY 04/02/23 11/27/24 sotalol 80 mg tablet (Sotalol AF) 80 mg PO Q8H 04/02/23 11/27/24 Previous Rx's ?Medication ?Instructions ?Recorded hydrocodone 5 mg-acetaminophen 325 1 tab PO Q4-6H PRN pain #10 tabs 11/27/24 mg tablet ondansetron 4 mg disintegrating 4 mg PO Q8H PRN nausea and 11/27/24 tablet vomiting #10 tabs Allergies Allergy/AdvReac Type Severity Reaction Status Date / Time No Known Drug Allergies Allergy Verified 01/25/24 10:25 Review of Systems Status of ROS Reports: 10 or more systems reviewed and unremarkable except as noted in History and below Const Denies: fever, chills or fatigue Eyes Denies: change in vision ENMT Denies: throat pain, neck pain or nasal congestion Cardio Denies: chest pain, swelling of feet/ankles or shortness of breath with exertion Resp Denies: shortness of breath or cough GI Reports: abdominal pain and nausea; Denies: vomiting or diarrhea Reports: urinary urgency; Denies: painful urination Musculo Denies: neck pain Endo Denies: fatigue [facility] Medical History Cataract (lens) fragments in eye following cataract surgery ?H59.029 - Cataract (lens) fragments in eye following cataract surgery, unspecified eye (ICD-10) Heart attack ?I21.9 - Acute myocardial infarction, unspecified (ICD-10) A-fib ?I48.91 - Unspecified atrial fibrillation (ICD-10) High cholesterol ?E78.00 - Pure hypercholesterolemia, unspecified (ICD-10) Surgical History H/O nasal septoplasty ?Z98.890 - Other specified postprocedural states (ICD-10) H/O heart bypass surgery ?Z95.1 - Presence of aortocoronary bypass graft (ICD-10) Social History Smoking Status: Never smoker Do you use any of these nicotine containing products: None Second hand tobacco smoke exposure: No Exam Narrative: Exam Narrative: Alert and oriented. He is nontoxic in appearance. Very pleasant gentleman. There is some slight aspect of difficulty with sitting still and not being able to find a comfortable position. EOM is full. Face symmetrical. Heart with a regular rate but regularly irregular rhythm and systolic murmur noted. Lungs are clear bilaterally. No CVA tenderness to percussion. Mild right upper quadrant tenderness. Lower extremities without edema. Moving all extremities Const: Vital Signs, click to edit/add: Vital Signs - 24 hr 11/27/24 14:43 11/27/24 16:13 11/27/24 16:15 Temperature 97 F L Pulse Rate 64 55 L Pulse Rate [Pulse Oximeter] 57 L Respiratory Rate 18 16 Blood Pressure [Ri ght Upper Arm] 153/74 H Pulse Oximetry 99 96 98 Oxygen Delivery Me thod Room Air 11/27/24 16:30 11/27/24 16:45 11/27/24 17:00 Temperature Pulse Rate 56 L 58 L Pulse Rate [Pulse Oximeter] Respiratory Rate Blood Pressure [Ri ght Upper Arm] Pulse Oximetry 97 97 92 Oxygen Delivery Va thod Documenting provider has reviewed patient's vital signs: yes Course Course ED Course: Differential diagnosis includes but is not limited to gastritis, viral gastroenteritis, biliary colic, ureteral colic/nephrolithiasis, cholecystitis, colitis, urinary tract infection, UTI, pyelonephritis. Will place IV and use morphine 4 mg Zofran 4 mg and give 500 mL normal saline. Plan on ultrasound or CT pending laboratory values. Reevaluation(s) Reevaluation #1: Patient noted to have normal white count hemoglobin and essentially normal basic panel. LFTs are normal with the exception of total bilirubin which is slightly high at 1.6. CRP is normal. Urinalysis shows hematuria with greater than 100 rbc's. Given this finding suspicion for nephrolithiasis with ureteral colic has grown. Will obtain CT of the abdomen without contrast at this time. Patient notes that he is feeling better after the medications. I have asked him to strain his urine from this point forward. Vital Signs Vital signs: Initial Vital Signs Temperature 97 F L 11/27/24 14:43 Temperature Source Temporal Artery Scan 11/27/24 14:43 Pulse Rate 57 L 11/27/24 14:43 Respiratory Rate 18 11/27/24 14:43 Blood Pressure 153/74 H 11/27/24 14:43 Blood Pressure Mean 100 11/27/24 14:43 Pulse Oximetry 99 11/27/24 14:43 Oxygen Delivery Method Room Air 11/27/24 14:43 Vital Signs Temperature 97 F L 11/27/24 14:43 Pulse Rate 57 L 11/27/24 14:43 Respiratory Rate 18 11/27/24 14:43 Blood Pressure 153/74 H 11/27/24 14:43 Pulse Oximetry 99 11/27/24 14:43 Oxygen Delivery Method Room Air 11/27/24 14:43 Temperature 97 F L 11/27/24 14:43 Pulse Rate 58 L 11/27/24 16:45 Respiratory Rate 16 11/27/24 16:15 Blood Pressure 153/74 H 11/27/24 14:43 Pulse Oximetry 92 11/27/24 17:00 Oxygen Delivery Method Room Air 11/27/24 14:43 Medications Administered Medications: Discontinued Medications Generic Name Dose Route Start Last Admin Trade Name Freq PRN Reason Stop Dose Admin Sodium Chloride 500 mls @ 500 mls/hr 11/27/24 15:39 11/27/24 16:46 0.9 % Sodium Chloride 500 Ml IV 11/27/24 16:38 Infused .Q1H ONE Infusion Morphine Sulfate 4 mg 11/27/24 15:39 11/27/24 16:09 Morphine 4 Mg/Ml Inj IVP 11/27/24 15:40 4 mg ONCE ONE Administration Ondansetron HCl 4 mg 11/27/24 15:39 11/27/24 16:09 Ondansetron 2 Mg/Ml Inj IVP 11/27/24 15:40 4 mg ONCE ONE Administration MDM - Abdominal Pain MDM Narrative Medical decision making narrative: 1. Nephrolithiasis with ureteral colic-patient has a 2 mm stone in the distal right ureter. This is associated with hydronephrosis. Vital signs are reassuring as are laboratory values with a normal white count kidney function and CRP. No signs of sepsis at this time. Patient did have relief with morphine and Zofran as well as fluids. Pain is now returning but he has driven here and was wish to drive home. Therefore will hold off on any further narcotic pain medicines. We are limited in our medications given the fact that patient is on Eliquis for atrial fibrillation. I would like patient to follow- up with his primary MD if he has ongoing pain greater than 24 hours. We will use a strainer at home to see if he can catch this stone. He will return to the emergency room for lightheadedness fever worsening symptoms and as needed. 2. Chronic anticoagulation secondary to atrial fibrillation 3. Disposition-home at this time Lab Data Attestation: I reviewed the patient's lab results. Labs: Lab Results 11/27/24 11/27/24 Range/Units 15:45 16:00 WBC 5.99 (4.50-11.00) K/uL RBC 4.41 (4.30-5.90) m/uL Hgb 13.8 (13.5-17.5) gm/dL Hct 41.6 (37.0-53.0) % MCV 94 (80-100) fL MCH 31 (26-34) pg MCHC 33 (32-36) gm/dL RDW Coeff of Lara 13.3 (11.5-15.5) % Plt Count 153 (140-440) K/uL Neut % (Auto) 53.5 (42.0-72.0) % Lymph % (Auto) 31.6 (20-44) % [place] % (Auto) 12.9 H (0.0-11.0) % Eos % (Auto) 1.5 (0.0-7.0) % Baso % (Auto) 0.3 (0.0-3.0) % Neut # (Auto) 3.21 (1.7-7.0) K/uL Lymph # (Auto) 1.89 (0.90-2.90) K/uL [place] # (Auto) 0.80 (0.00-0.90) K/UL Eos # (Auto) 0.09 (0.00-0.50) K/uL Baso # (Auto) 0.02 (0.00-0.30) K/uL Abs Immat Gran (auto) 0.01 (0.00-0.30) K/uL Imm/Tot Granulo (auto) 0.2 % Sodium 138 (135-149) mmol/L Potassium 4.2 (3.6-5.1) mmol/L Chloride 105 (96-114) mmol/L Carbon Dioxide 27 (20-32) mmol/L Anion Gap 6 L (7-15) mEq/L BUN 21 (7-30) mg/dL Creatinine 0.8 (0.5-1.5) mg/dL Estimated Creat Clear 68.50 Estimated GFR 89 ml/min Glucose 98 (60-115) mg/dL Lactate 1.4 (0.5-1.9) mmol/L Calcium 9.3 (8.4-10.6) mg/dL Total Bilirubin 1.6 H (0.1-1.5) mg/dL AST 24 (12-35) U/L ALT 18 (4-50) U/L Alkaline Phosphatase 93 (40-150) U/L C-Reactive Protein < 0.5 L (0.5-1.0) mg/dL Total Protein 7.1 (6.0-8.3) g/dL Albumin 4.4 (3.3-5.0) g/dL Lipase 87 (23-300) U/L Urine Color Maurice A (Yellow) Urine Appearance Cloudy A (Clear) Urine pH 5.0 (5.0-8.5) Ur Specific [place] >= 1.030 (1.000-1.030) Urine Protein 3+ A (Negative) Urine Glucose (UA) Trace A (Negative) Urine Ketones Trace A (Negative) Urine Blood 3+ A (Negative) Urine Nitrite Negative (Negative) Urine Bilirubin 1+ A (Negative) Urine Urobilinogen 1.0 (0.2-1.0) Ur Leukocyte Esterase Negative (Negative) Urine RBC >100 A (0-2) Urine WBC 0-2 (0-5) Ur Squamous Epith Cells Few (None-Few) Amorphous Sediment Few A (None) Urine Bacteria Many A (None) Imaging Data CT scan - abdomen: Attestation: I have reviewed the pertinent imaging results. My impression: Right-sided hydronephrosis noted. I am unable to visualize a suspected urinary calculus Radiologist's impression: Lower chest: No focal consolidation. Normal heart size. No pleural effusions or pneumothorax. Mitral annular calcifications. Coronary arterial calcifications. Subsegmental dependent atelectasis. Liver: Unremarkable. Gallbladder: Unremarkable. Biliary: Unremarkable. Pancreas: Within normal limits. Spleen: Unremarkable. Adrenal glands: Unremarkable. Renal/ureters/bladder: Multicystic right kidney, poorly characterized on this noncontrast examination. Mild right-sided hydronephrosis to the level of the distal ureter where there is an obstructing 2 mm urinary calculus. The left kidney is normal in size without obstructive uropathy. Decompressed bladder limits evaluation. Limited evaluation for renal masses without the use of intravenous contrast. Pelvis: Prosthetic brachytherapy seeds in place. Gastrointestinal: No bowel wall thickening or bowel obstruction. Normal appendix. Colonic diverticulosis without colonic wall thickening or pericolonic fat stranding. Mild colonic stool burden. Vasculature: No aortic aneurysm. Severe atherosclerotic calcifications. Lymph nodes: No pathologic lymphadenopathy by size criteria. Peritoneum: No free fluid or pneumoperitoneum. No drainable fluid collections. Abdominal wall/soft tissues: Unremarkable. Bones: No acute osseous abnormalities. Multilevel degenerative changes of the visualized thoracolumbar spine. Chronic bilateral L5 pars defects. Grade 1 anterolisthesis of L5 on S1 IMPRESSION: Mild right-sided hydroureteronephrosis to the level of the distal ureter where there is an obstructing 2 mm urinary calculus. Discharge Plan Discharge Clinical Impression: Nephrolithiasis, Colic, ureteral Patient Disposition: Home, Self-Care Condition: Improved Additional Instructions: Would recommend straining of your urine. If you have resolution of the pain in the next 24 hours most likely this stone has passed. If you do not have resolution please check in with your primary care clinic or provider. For ongoing pain you may need Urology consultation. For discomfort, Vicodin which is a combination medicine of a narcotic called hydrocodone and Tylenol may be used sparingly for discomfort. Because this can cause nausea will also supply with Zofran and anti nausea medicine that notes on the tongue and provides nausea relief. Return for fever, worsening symptoms and as needed. Prescriptions: New ondansetron 4 mg tablet,disintegrating 4 mg PO Q8H PRN (Reason: nausea and vomiting) Qty: 10 0RF hydrocodone-acetaminophen 5-325 mg tablet 1 tab PO Q4-6H PRN (Reason: pain) Qty: 10 0RF No Action Eliquis 5 mg tablet 5 mg PO BID sotalol [Sotalol AF] 80 mg tablet 80 mg PO Q8H atorvastatin 40 mg tablet 40 mg PO DAILY Follow Up/Referrals: Provider,Not a Local [Primary Care Provider] - Stand Alone Forms: [employer] Info Instructions
--- OUTSIDE RECORDS SUMMARY | 2024-11-27 15:47 | XMS_ITS | Encounter Summary ---
Author Organization [facility] Address [address] [place] [address]. [place] [address] Care Team Providers Care Aviation Ordnance Officer Name Role Phone No Ref-Primary, Physician Primary Care Provider Robert Jenkins MD Unavailable Robert Jenkins MD Unavailable Reason for Visit * Reason Onset Date Comments Call to schedule test 11/23/2024 Encounter Details Date Type Department Care Team (Late st Contact Info) Description 11/23/2024 Telephone [facility] [place] [address] [facility] [address] [place] [address] Robert Jenkins MD [address] [facility] [address] [place] [id number] Call to schedule test Social History Tobacco [...] has provider appt 11/28- Specialty phone number: [phone] LE CUTTER documented in this encounter Plan of Treatment Upcoming Encounters Date Type Department Care Team (Late st Contact Info) Description 11/28/2024 1:30 PM MARBLE CUTTER Office Visit [facility] [id number] [place] [address] [address] [place] [phone] Robert Jenkins MD [address] [place] [id number] documented as of this encounter Visit Diagnoses Not on filedocumented in this encounter Care Teams Aviation Ordnance Officer Relationship Specialty Start Date End Date No Ref-Primary, Physician PCP - General 07/01/21 Robert Jenkins MD [address] [place] [id number] Cardiovascular Disease 11/25/21 Robert Jenkins MD [address] [place] [id number] Assigned Heart and Vascular Provider 11/26/23 documented as of this encounter
--- OUTSIDE RECORDS SUMMARY | 2024-11-27 15:47 | XMS_ITS | Encounter Summary ---
Author Organization [facility] Address [address] [place] [address]. [place] [address] Care Team Providers Care Pin Inserter Name Role Phone No Ref-Primary, Physician Primary Care Provider Destinee Thao PA-C Unavailable [phone] Robert Jenkins MD Unavailable [phone] Robert Jenkins MD Unavailable Luciana Cage PA-C Unavailable [phone] Robert Jenkins MD Unavailable [phone] Reason for Visit * Reason Onset Date Comments Refill Request 12/01/2021 Sophie Encounter Details Date Type Department Care Team (Late st Contact Info) Description 12/01/2021 Telephone [facility] [address] [place] [phone] Robert Jenkins MD [address] [facility] [address] [place], [place] [address] Refill Request (Nenitaqumarina) Social History Tobacco Use [...] COVID-19? Unable to assess 11/25/2021 10:56 AM LINEN ATTENDANT documented as of this encounter Miscellaneous Notes * Telephone Encounter - MemeYelena eden - 12/01/2021 2:31 PM CST [facility] Call Center Phone Message May a detailed message be left on voicemail: yes Reason for Call: Medication Refill Request Has the patient contacted the pharmacy for the refill? Yes Name of medication being requested: Sophie Provider who prescribed the medication: Dr. Jenkins Pharmacy: [facility] [address] [facility], [place] - [address] Date medication is needed: 12/05/21 Action Taken: Message routed to: Other: [place] Travel Screening: Not Applicable N ATTENDANT documented in this encounter Plan of Treatment Upcoming Encounters Date Type Department Care Team (Late st Contact Info) Description 11/28/2024 1:30 PM LINEN ATTENDANT Office Visit [facility] [facility] [address] [facility] [address] [place] [phone] Robert Jenkins MD [address] [place] [id number] documented as of this encounter Visit Diagnoses Not on filedocumented in this encounter Care Teams Pin Inserter Relationship Specialty Start Date End Date No Ref-Primary, Physician PCP - General 07/01/21 Destinee Thao PA-C [address] [facility] [place] [id number] Assigned Heart and Vascular Provider 07/06/21 04/10/22 Robert Jenkins MD [address] [place] [id number] Cardiovascular Disease 11/25/21 Robert Jenkins MD [address] [place] [address] Assigned Heart and Vascular Provider 04/11/22 10/01/23 Luciana Cage PA-C [address] [address] Assigned Heart and Vascular Provider 10/28/23 11/25/23 Robert Jenkins MD [address] [place] [address] Assigned Heart and Vascular Provider 11/26/23 documented as of this encounter
--- OUTSIDE RECORDS SUMMARY | 2024-11-27 15:47 | XMS_ITS | Encounter Summary ---
Author Organization [facility] Address [address] [place] [address]. [place] [address] Care Team Providers Care Nursing Program Manager Name Role Phone No Ref-Primary, Physician Primary Care Provider Robert Jenkins MD Unavailable [phone] Robert Jenkins MD Unavailable [phone] Encounter Details Date Type Department Care Team (Late st Contact Info) Description 11/27/2024 9:30 AM REPAIR OPERATOR Lab [facility] [id number] [place] [address] [address] [place] [address] Coronary artery disease involving [place] coronary artery of [place] heart without angina pectoris; Nonrheumatic aortic valve [...] st Contact Info) Description 11/28/2024 1:30 PM REPAIR OPERATOR Office Visit [facility] [address] [facility] [address] [place] [phone] Robert Jenkins MD [address] [place] [address] Pending Results Name Type Priority Associated Diagnoses Date /Time Lipid Profile Lab Routine 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 aortic valve stenosis 11/27/2024 9:25 AM REPAIR OPERATOR documented as of this encounter Procedures Procedure Name Priority Date/Time Associated Diagnosis Comments ALT Routine 11/27/2024 9:25 AM REPAIR OPERATOR 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 aortic valve stenosis BASIC METABOLIC PANEL Routine 11/27/2024 9:25 AM REPAIR OPERATOR 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 aortic valve stenosis documented in this encounter Results * ALT (11/27/2024 9:25 AM REPAIR OPERATOR) ALT 17 0 - 70 U/L 11/27/2024 10:23 AM REPAIR OPERATOR LABORATORY Blood STRUCTURE OF LEFT UPPER LIMB / Unknown Venipuncture / Unknown 11/27/2024 9:25 AM REPAIR OPERATOR 11/27/2024 9:25 AM REPAIR OPERATOR us Robert Jenkins MD LAB - BLOOD ORDERABLES Fin al Result LABORATORY [facility] Acute Care Lab [address] Lab (1st floor, no room number) [place] [address], [facility] * (ABNORMAL) Basic metabolic panel (11/27/2024 9:25 AM REPAIR OPERATOR) Sodium 139 135 - 145 mmol/L 11/27/2024 10:23 AM REPAIR OPERATOR LABORATORY Potassium 4.2 3.4 - 5.3 mmol/L 11/27/2024 10:23 AM REPAIR OPERATOR RH LABORATORY Chloride 104 98 - 107 mmol/L 11/27/2024 10:23 AM REPAIR OPERATOR RH LABORATORY Carbon Dioxide (CO2) 25 22 - 29 mmol/L 11/27/2024 10:23 AM REPAIR OPERATOR LABORATORY Anion Gap 10 7 - 15 mmol/L 11/27/2024 10:23 AM REPAIR OPERATOR LABORATORY Urea Nitrogen 19.1 8.0 - 23.0 mg/dL 11/27/2024 10:23 AM REPAIR OPERATOR LABORATORY Creatinine 0.80 0.67 - 1.17 mg/dL 11/27/2024 10:23 AM REPAIR OPERATOR LABORATORY GFR Estimate 89 >60 mL/min/1.7 3m2 11/27/2024 10:23 AM REPAIR OPERATOR LABORATORY Comment:eGFR calculated usin g 2020 CKD-EPI equation. 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
--- OUTSIDE RECORDS SUMMARY | 2024-11-27 15:47 | XMS_ITS | Clinical Summary ---
Author Organization [facility] Address [address] [place] [address] Care Team Providers Care Onyx Chip Terrazzo Worker Name Role Phone Unavailable Primary Care Provider Unavailabl e Source Comments Patient records contain information from all sites at [facility]. For routine questions regarding patient records, call [phone] during business hours, M-F 8:00 AM - 5:00 PM Central Time. Record requests for emergency care only can be directed to [phone] at any time.[facility] Allergies No known active allergies Medications [...] Diagnosed Date Atherosclerotic Heart Diseas e Of [place] Coronary Artery Without Angina Pectoris 11/06/2022 Ectasia [...] on file Legal Sex Male 10:20 AM HELPDESK ANALYST Gender Identity Not on file Sexual Orientation [...]
--- OUTSIDE RECORDS SUMMARY | 2024-11-27 15:47 | XMS_ITS | Encounter Summary ---
Author Organization [facility] Address [address] [place] [address] Care Team Providers Care Greenskeeper Supervisor Name Role Phone No Ref-Primary, Physician Primary Care Provider Robert Jenkins MD Unavailable Robert Jenkins MD Unavailable Luciana Cage PA-C Unavailable Robert Jenkins MD Unavailable Reason for Referral * CV Testing (Routine) - Closed Specialty Diagnoses / Procedures Referred By Agustín t Referred To Contact Cardiology Diagnoses Coronary artery disease involving [place] coronary artery of [place] heart without angina pectoris Paroxysmal atrial fibrillation [...] [facility] STATISTIC IV PUSH SINGLE INITIAL SUBSTANCE MD ECHO MYOCARD BX MD INJECTION, PERFLUTREN LIPID MICROSPHERES, PER ML MD TTE W/DOPPLER, COMPLETE MD IV PUSH SINGLE, INITIAL SUBSTANCE MD TTE W/DOPPLER, COMPLETE MD TTE W/DOPPLER, COMPLETE HC US GUIDE FOR PERICARDIOCENTESIS HC ECHO MYOCARD BX HC IV PUSH SINGLE, INITIAL SUBSTANCE HC STATISTIC IV PUSH SINGLE INITIAL SUBSTANCE HC ECHO COMPLETE W DOPPLER W CONTRAST HC ECHO COMPLETE W DOPPLER W/O CONTRAST Robert Jenkins MD [address] [place] [address] Phone: tel: fax: [facility] [address] [facility] [address] [place] [address] Phone: tel: fax: Referral ID Status Reason Start Date Expiration Date Visits Re quested Visits Authorized Closed 05/21/2023 04/18/2024 1 1 * Consultation (Routine: Next available opening) - Closed Specialty Diagnoses / Procedures Referred By Contac t Referred To Contact Cardiovascular Disease Diagnoses Coronary artery disease involving [place] coronary artery of [place] heart without angina pectoris Paroxysmal atrial fibrillation (H) Essential hypertension Mixed hyperlipidemia Nonrheumatic aortic valve stenosis Ascending aorta dilatation Nonrheumatic mitral valve regurgitation Tricuspid valve regurgitation, nonrheumatic Robert Jenkins MD [address] [place] [address] Phone: tel: fax: Referral ID Status Reason Start Date Expiration Date Visits Re quested Visits Authorized Closed 04/19/2023 04/18/2024 1 1 Question Answer Follow-up with: KEENA Scheduling Instructions: [facility] will call you to coordinate your care as prescribed by your provider. If you have concerns about scheduling, please call [phone]. Comments [facility] will call you to coordinate your care as prescribed by your provider. If you have concerns about scheduling, please call [phone]. Reason for Visit * Reason Onset Date Comments Orders 04/19/2023 Echo needs to be extended Encounter Details Date Type Department Care Team (Late st Contact Info) Description 04/19/2023 Telephone [facility] [place] [address] [facility] [address] [place] [address] Robert Jenkins MD [address] [place] [id number] Orders (Echo needs to be extended) Social [...] Lynn Oviedo - 04/19/2023 10:54 AM CDT [facility] Call Center Phone Message May a detailed [...] st Contact Info) Description 11/28/2024 1:30 PM DETONATOR ASSEMBLER Office Visit [facility] Heart [address] [place] [address] Robert Jenkins MD [address] [place] [address] Scheduled Referrals Name Type Priority Associated Diagnoses Orde r Schedule Follow-Up with Cardiology KEENA Referral Routine: Next available opening Coronary artery disease involving [place] coronary artery of [place] heart without angina pectoris Paroxysmal atrial fibrillation (H) Essential hypertension Mixed hyperlipidemia Nonrheumatic aortic valve stenosis Ascending aorta dilatation Nonrheumatic mitral valve regurgitation Tricuspid valve regurgitation, nonrheumatic Expected: 04/26/2023 (Approximate), Expires: 04/19/2024 documented as of this encounter Results * ECHO COMPLETE (05/21/2023 9:08 AM CDT) LVEF 50-55% CARDIOLOGY RESULTS Anatomical Region Laterality Modality Echocardiography 05/21/2023 8:39 AM CDT Narrative 05/21/2023 10:32 AM CDT [id number]^ANDREA^ROBERT^[facility] Echocardiography Laboratory [address] [place] [address] Name: SOFYA FREEMAN : 1945 Study Date: 05/21/2023 08:39 AM Age: 78 yrs Gender: Male Patient Location: [facility] Reason For Study: Coronary artery disease involving [place] coronary artery of [place] Ordering Physician: ROBERT [...] Procedure Note Hardy Sandoval MD - 05/21/2023 [id number]^ANDREA^ROBERT^[facility] Echocardiography Laboratory [address] [place] [address] Name: SOFYA FREEMAN : 1945 Study Date: 05/21/2023 08:39 AM Age: 78 yrs Gender: Male Patient Location: [facility] Reason For Study: Coronary artery disease involving [place] coronary arteryof joaquín Ordering Physician: ROBERT JENKINS [...] Final * ALT (05/21/2023 8:10 AM CDT) [facility] Signature ALT 15 0 - 70 [...] - BLOOD ORDERABLES Fin al Result LABORATORY [facility] Acute Care Lab [address] Lab (1st floor, no room number) [place] [address], [facility] [phone] * (ABNORMAL) Lipid Profile (05/21/2023 8:10 AM [...] BLOOD ORDERABLES Fin al Result [facility] LABORATORY [facility] [place] Core Lab [address], [address] [place] [address], [facility] [phone] * (ABNORMAL) Basic metabolic panel (05/21/2023 8:10 [...] - BLOOD ORDERABLES Fin al Result LABORATORY [facility] Acute Care Lab [address] Lab (1st floor, no room number) [place] [address], [facility] [phone] documented in this encounter Visit Diagnoses Diagnosis Coronary artery disease involving [place] coronary artery of [place] heart without angina pectoris- Primary Paroxysmal atrial fibrillation (H) Atrial fibrillation Essential hypertension Unspecified essential hypertension Mixed hyperlipidemia Nonrheumatic aortic valve stenosis Aortic valve disorders Ascending aorta dilatation Thoracic aortic ectasia Nonrheumatic mitral valve regurgitation Tricuspid valve regurgitation, nonrheumatic Tricuspid valve disorders, specified as nonrheumatic Pulmonary hypertension (H) 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 Paroxysmal atrial fibrillation (H) Atrial fibrillation Nonrheumatic aortic valve stenosis Aortic valve disorders Ascending aorta dilatation Thoracic aortic ectasia Nonrheumatic mitral valve regurgitation Tricuspid valve regurgitation, nonrheumatic Tricuspid valve disorders, specified as nonrheumatic Pulmonary hypertension (H) Other chronic pulmonary heart diseases documented in this encounter Care Teams Greenskeeper Supervisor Relationship Specialty Start Date End Date No Ref-Primary, Physician PCP - General 07/01/21 Robert Jenkins MD [address] [place] [id number] Cardiovascular Disease 11/25/21 Robert Jenkins MD [address] [place] [address] Assigned Heart and Vascular Provider 04/11/22 10/01/23 Luciana Cage PA-C [address] [place] [address] Assigned Heart and Vascular Provider 10/28/23 11/25/23 Robert Jenkins MD [address] [place] [id number] Assigned Heart and Vascular Provider 11/26/23 documented as of this encounter
--- OUTSIDE RECORDS SUMMARY | 2024-11-27 15:47 | XMS_ITS | Clinical Summary ---
Author Organization [facility] Address [address] [place] [address] Care Team Providers Care Subsystems Engineer Name Role Phone No Ref-Primary, Physician Primary Care Provider Robert Jenkins MD Unavailable Robert Jenkins MD Unavailable Allergies No known active allergies Medications atorvastatin (LIPITOR) 40 MG tabletIndications :Coronary artery disease involving eagle coronary artery of eagle heart without angina pectoris Take 1 tablet [...] hypertension 04/02/2022 Coronary artery disease invo lving eagle coronary artery of eagle heart without angina pectoris Overview (06/02/2021): s/p [...] Department Care Team Description 11/27/2024 9:30 AM DIGITAL MEDIA REPRESENTATIVE Lab [facility] [address] [facility] [address] [place] [phone] Coronary artery disease involving eagle coronary artery of eagle heart without angina pectoris; Nonrheumatic aortic valve stenosis 11/27/2024 Travel 11/23/[address] [place] [phone] Robert Jenkins MD Call to schedule test 11/21/2024 9:10 AM DIGITAL MEDIA REPRESENTATIVE - 11/21/2024 11:59 PM DIGITAL MEDIA REPRESENTATIVE Hospital Encounter [facility] Special[facility] [address] [facility] [address] [place] [phone] Robert Jenkins MD Coronary artery disease involving eagle coronary artery of eagle heart without angina pectoris; Nonrheumatic aortic valve [...] st Contact Info) Description 11/28/2024 1:30 PM DIGITAL MEDIA REPRESENTATIVE Office Visit [facility] [address] [facility] [address] [place] [phone] Robert Jenkins MD [address] [place] [address] Health Maintenance Due Date Last Done Comments [...] Diagnosis Comments ALT Routine 11/27/2024 9:25 AM DIGITAL MEDIA REPRESENTATIVE Coronary artery disease involving eagle coronary artery of eagle heart without angina pectoris Nonrheumatic aortic valve stenosis BASIC METABOLIC PANEL Routine 11/27/2024 9:25 AM DIGITAL MEDIA REPRESENTATIVE Coronary artery disease involving eagle coronary artery of eagle heart without angina pectoris Nonrheumatic aortic valve stenosis ECHO COMPLETE Routine 11/21/2024 10:06 AM DIGITAL MEDIA REPRESENTATIVE Coronary artery disease involving eagle coronary artery of eagle heart without angina pectoris Nonrheumatic aortic valve stenosis LIPID PROFILE Routine 05/15/2024 9:03 AM CDT Coronary artery disease involving eagle coronary artery of eagle heart without angina pectoris from Last 3 Months or Most Recently Relevant to Health Maintenance Results * ALT (11/27/2024 9:25 AM DIGITAL MEDIA REPRESENTATIVE) ALT 17 0 - 70 U/L 11/27/2024 10:23 AM DIGITAL MEDIA REPRESENTATIVE LABORATORY Blood STRUCTURE OF LEFT UPPER LIMB / Unknown Venipuncture / Unknown 11/27/2024 9:25 AM DIGITAL MEDIA REPRESENTATIVE 11/27/2024 9:25 AM DIGITAL MEDIA REPRESENTATIVE Robert Jenkins MD LAB - BLOOD ORDERABLES Fin al Result LABORATORY [facility] Acute Care Lab [address] Lab (1st floor, no room number) [place] [address], [facility] * (ABNORMAL) Basic metabolic panel (11/27/2024 9:25 AM DIGITAL MEDIA REPRESENTATIVE) Sodium 139 135 - 145 mmol/L 11/27/2024 10:23 AM DIGITAL MEDIA REPRESENTATIVE LABORATORY Potassium 4.2 3.4 - 5.3 mmol/L 11/27/2024 10:23 AM DIGITAL MEDIA REPRESENTATIVE LABORATORY Chloride 104 98 - 107 mmol/L 11/27/2024 10:23 AM [facility] LABORATORY Carbon Dioxide (CO2) 25 22 - 29 mmol/L 11/27/2024 10:23 AM [facility] LABORATORY Anion Gap 10 7 - 15 mmol/L 11/27/2024 10:23 AM [facility] LABORATORY Urea Nitrogen 19.1 8.0 - 23.0 mg/dL 11/27/2024 10:23 AM [facility] LABORATORY Creatinine 0.80 0.67 - 1.17 mg/dL 11/27/2024 10:23 AM [facility] LABORATORY GFR Estimate 89 >60 mL/min/1.7 3m2 11/27/2024 10:23 AM [facility] LABORATORY Comment:eGFR calculated usin 2020 CKD-EPI equation. Calcium 9.3 8.8 - 10.4 mg/dL 11/27/2024 10:23 AM [facility] LABORATORY Glucose 104(H) 70 - 99 mg/dL 11/27/2024 10:23 AM [facility] LABORATORY Blood STRUCTURE OF LEFT UPPER LIMB / Unknown Venipuncture / Unknown 11/27/2024 9:25 AM DIGITAL MEDIA REPRESENTATIVE 11/27/2024 9:25 AM DIGITAL MEDIA REPRESENTATIVE Robert Jenkins MD LAB - BLOOD ORDERABLES Fin al Result [facility] Acute Care Lab [address] [facility] Lab (1st floor, no room number) [place] [address], [facility] * ECHO COMPLETE (11/21/2024 10:06 AM DIGITAL MEDIA REPRESENTATIVE) LVEF 55-60% CARDIOLOGY RESULTS Anatomical Region Laterality Modality Echocardiography 11/21/2024 9:20 AM DIGITAL MEDIA REPRESENTATIVE Narrative 11/21/2024 10:16 AM DIGITAL MEDIA REPRESENTATIVE [id number]^ANDREA^FLO [facility] Echocardiography Laboratory [address] [place] [address] Name: SOFYA FREEMAN : 1945 Study Date: 11/21/2024 09:20 AM Age: 79 yrs Gender: Male Patient Location: [facility] Reason For Study: Coronary artery disease involving eagle coronary artery of [place] Ordering Physician: ROBERT [...] Procedure Note Rigo Guzman MD - 11/21/2024 [id number]^ANDREA^ROBERT^[facility] Echocardiography Laboratory [address] [place] [address] Name: SOFYA FREEMAN : 1945 Study Date: 11/21/2024 09:20 AM Age: 79 yrs Gender: Male Patient Location: [facility] Reason For Study: Coronary artery disease involving eagle coronary arteryof joaquín Ordering Physician: ROBERT JENKINS [...] - BLOOD ORDERABLES Fin al Result LABORATORY [facility] [place] Core Lab [address] [facility] [address] Building, [address] [place] [address], [facility] LABORATORY [facility] Acute Care Lab [address] [facility] Lab (1st floor, no room number) [place] [address], [facility] from Last 3 Months or Most Recently Relevant to Health Maintenance Insurance MEDICARE COMMERCIAL [place] [id number] [address] [address] MEDICARE COMMERCIAL Care Teams Subsystems Engineer Relationship Specialty Start Date End Date No Ref-Primary, Physician PCP - General 07/01/21 Robert Jenkins MD [address] [place] [address] Cardiovascular Disease 11/25/21 Robert Jenkins MD [address] [place] [address] Assigned Heart and Vascular Provider 11/26/23
--- OUTSIDE RECORDS SUMMARY | 2024-11-27 15:47 | XMS_ITS | Encounter Summary ---
Author Organization [place] Address [address] [place] [address] Care Team Providers Care Mandrel Maker Name Role Phone No Ref-Primary, Physician Primary Care Provider Robert [place] MD Unavailable [phone] Robert [place] MD Unavailable [phone] Reason for Referral * CV Testing (Routine) - Closed Specialty Diagnoses / Procedures Referred By Contac t Referred To Contact Cardiology Diagnoses Coronary artery disease involving wrangell coronary artery of wrangell heart without angina pectoris Nonrheumatic aortic valve stenosis Procedures Echocardiogram Complete ZZHC TTE W/DOPPLER, COMPLETE ZZ[facility] ECHO COMPLETE W DOPPLER W CONTRAST ZZHC ECHO COMPLETE W DOPPLER W/O CONTRAST ZZ[facility] IV PUSH SINGLE, INITIAL SUBSTANCE ZZHC US GUIDE FOR PERICARDIOCENTESIS ZZHC ECHO MYOCARD BX ZZC INJECTION, PERFLUTREN LIPID MICROSPHERES, PER ML ZZHC STATISTIC IV PUSH SINGLE INITIAL SUBSTANCE MA ECHO MYOCARD BX MA INJECTION, PERFLUTREN LIPID MICROSPHERES, PER ML MA TTE W/DOPPLER, COMPLETE MA IV PUSH SINGLE, INITIAL SUBSTANCE MA TTE W/DOPPLER, COMPLETE MA TTE W/DOPPLER, COMPLETE HC US GUIDE FOR PERICARDIOCENTESIS HC ECHO MYOCARD BX HC IV PUSH SINGLE, INITIAL SUBSTANCE HC STATISTIC IV PUSH SINGLE INITIAL SUBSTANCE HC ECHO COMPLETE W DOPPLER W CONTRAST HC ECHO COMPLETE W DOPPLER W/O CONTRAST Robert [place] MD [address] [place] [address] Phone: tel: fax: [facility] [address] [place] [address] [address] [place] [address] Phone: tel: fax: Referral ID Status Reason Start Date Expiration Date Visits Re quested Visits Authorized [id number] Closed 05/16/2024 05/16/2025 1 1 BAIT PICKER Reason for Visit * CV Testing (Routine) - Closed Specialty Diagnoses / Procedures Referred By Contac t Referred To Contact Cardiology Diagnoses Coronary artery disease involving wrangell coronary artery of wrangell heart without angina pectoris Nonrheumatic aortic valve stenosis Procedures Echocardiogram Complete ZZHC TTE W/DOPPLER, COMPLETE ZZHC ECHO COMPLETE W DOPPLER W CONTRAST ZZHC ECHO COMPLETE W DOPPLER W/O CONTRAST ZZHC IV PUSH SINGLE, INITIAL SUBSTANCE ZZHC US GUIDE FOR PERICARDIOCENTESIS ZZHC ECHO MYOCARD BX ZZC INJECTION, PERFLUTREN LIPID MICROSPHERES, PER ML ZZHC STATISTIC IV PUSH SINGLE INITIAL SUBSTANCE MA ECHO MYOCARD BX MA INJECTION, PERFLUTREN LIPID MICROSPHERES, PER ML MA TTE W/DOPPLER, COMPLETE MA IV PUSH SINGLE, INITIAL SUBSTANCE MA TTE W/DOPPLER, COMPLETE MA TTE W/DOPPLER, COMPLETE HC US GUIDE FOR PERICARDIOCENTESIS HC ECHO MYOCARD BX HC IV PUSH SINGLE, INITIAL SUBSTANCE HC STATISTIC IV PUSH SINGLE INITIAL SUBSTANCE HC ECHO COMPLETE W DOPPLER W CONTRAST HC ECHO COMPLETE W DOPPLER W/O CONTRAST Robert [place] MD [address] [place] [address] Phone: tel: fax: [facility] [address] [facility] [address] [place] [address] Phone: tel: fax: Referral ID Status Reason Start Date Expiration Date Visits Re quested Visits Authorized [id number] Closed 05/16/2024 05/16/2025 1 1 Encounter Details Date Type Department Care Team (Latest Contact Info) Description 11/21/2024 9:10 AM FISH BAIT PICKER - 11/21/2024 11:59 PM FISH BAIT PICKER Hospital Encounter [facility] [address] [facility] [address] [place] [phone] Robert [place] MD [address] [place] [address] Coronary artery disease involving wrangell coronary artery of wrangell heart without angina pectoris; Nonrheumatic aortic valve [...] 40 MG tabletIndications: Coronary artery disease involving wrangell coronary artery of wrangell heart without angina pectoris Take 1 tablet [...] st Contact Info) Description 11/28/2024 1:30 PM FISH BAIT PICKER Office Visit [facility] [place] [address] [facility] [address] [place] [phone] Robert [place] MD [address] [place] [id number] documented as of this encounter Procedures Procedure Name Priority Date/Time Associated Diagnosis Comments ECHO COMPLETE Routine 11/21/2024 10:06 AM FISH BAIT PICKER Coronary artery disease involving wrangell coronary artery of wrangell heart without angina pectoris Nonrheumatic aortic valve stenosis documented in this encounter Results * ECHO COMPLETE (11/21/2024 10:06 AM FISH BAIT PICKER) LVEF 55-60% CARDIOLOGY RESULTS Anatomical Region Laterality Modality Echocardiography 11/21/2024 9:20 AM FISH BAIT PICKER Narrative 11/21/2024 10:16 AM FISH BAIT PICKER [id number]^ANDREA^ROBERT^[facility] Echocardiography Laboratory [address] [place] [address] Name: SOFYA FREEMAN : 1945 Study Date: 11/21/2024 09:20 AM Age: 79 yrs Gender: Male Patient Location: [facility] Reason For Study: Coronary artery disease involving wrangell coronary artery of joaquín Ordering Physician: ROBERT [...] Procedure Note Rigo Guzman MD - 11/21/2024 [id number]^ANDREA^ROBERT^[facility] Echocardiography Laboratory [address] [place] [address] Name: SOFYA FREEMAN : 1945 Study Date: 11/21/2024 09:20 AM Age: 79 yrs Gender: Male Patient Location: [facility] Reason For Study: Coronary artery disease involving wrangell coronary arteryof joaquín Ordering Physician: ROBERT [place] [...] Visit Diagnoses Diagnosis Coronary artery disease involving wrangell coronary artery of wrangell heart without angina pectoris Nonrheumatic aortic valve stenosis Aortic valve disorders documented in this encounter Care Teams Mandrel Maker Relationship Specialty Start Date End Date No Ref-Primary, Physician PCP - General 07/01/21 Robert [place] MD [address] [place] [id number] Cardiovascular Disease 11/25/21 Robert [place] MD [address] [place] [address] Assigned Heart and Vascular Provider 11/26/23 documented as of this encounter
--- OUTSIDE RECORDS SUMMARY | 2024-11-27 15:47 | XMS_ITS | Clinical Summary ---
Author Organization [facility] Address [address] [place] [address] Care Team Providers Care Biofuels Production Manager Name Role Phone Pcp, No Primary Care [...] disease invo lving coronary bypass graft of [place] heart without angina pectoris 08/24/2021 Overview (08/24/2021): [...] on file Legal Sex Male 6:47 AM FUNERAL HOME MANAGER Gender Identity Not on file Sexual Orientation [...] 87.5 kg (193 lb) 08/24/2021 12:28 PM FUNERAL HOME MANAGER Height 188 cm (6' 2) 08/10/2021 10:31 AM FUNERAL HOME MANAGER Body Mass Index 24.78 08/10/2021 10:31 AM FUNERAL HOME MANAGER Plan of Treatment Health Maintenance Due Date [...] ONLY COMMERCIAL MEDICARE PB ONLY Care Teams Biofuels Production Manager Relationship Specialty Start Date End Date Pcp, No . PCP - General 08/10/21
--- OUTSIDE RECORDS SUMMARY | 2024-11-27 15:47 | XMS_ITS | Encounter Summary ---
Author Organization [place] Address [address] [facility] [address] Care Team Providers Care Event Specialist Product Demonstrator Name Role Phone No Ref-Primary, Physician Primary Care Provider Robert [place] MD Unavailable [phone] Robert [place] MD Unavailable [phone] Encounter Details Date Type Department Care Team [...] st Contact Info) Description 11/28/2024 1:30 PM PLUG SORTER Office Visit [facility] [address] [facility] [address] [place] [address] [place] MD [address] [facility] [address] [place], [place] [id number] documented as of this encounter Visit Diagnoses Not on filedocumented in this encounter Care Teams Event Specialist Product Demonstrator Relationship Specialty Start Date End Date No Ref-Primary, Physician PCP - General 07/01/21 Robert [place] MD [address] [place] [address] Cardiovascular Disease 11/25/21 Robert [place] MD [address] [place] [address] Assigned Heart and Vascular Provider 11/26/23 documented as of this encounter
--- OUTSIDE RECORDS SUMMARY | 2024-11-27 15:48 | XMS_ITS | Encounter Summary ---
Author Organization [place] Address [address] [facility] [place] [address] Care Team Providers Care Skiver Heel Tap Name Role Phone No Ref-Primary, Physician Primary Care Provider Robert [place] MD Unavailable [phone] Robert [place] MD Unavailable [phone] Encounter Details Date Type Department Care Team [...] st Contact Info) Description 11/28/2024 1:30 PM SINGLE NEEDLE TUFTING MACHINE OPERATOR Office Visit [facility] [address] [facility] [address] [place] [address] Robert [place] MD [address] [facility] [address] [place], [place] [address] documented as of this encounter Visit Diagnoses Not on filedocumented in this encounter Care Teams Skiver Heel Tap Relationship Specialty Start Date End Date No Ref-Primary, Physician PCP - General 07/01/21 Robert [place] MD [address] [place] [address] Cardiovascular Disease 11/25/21 Robert [place] MD [address] [place] [address] Assigned Heart and Vascular Provider 11/26/23 documented as of this encounter
--- OUTSIDE RECORDS SUMMARY | 2024-11-27 15:48 | XMS_ITS | Encounter Summary ---
Author Organization [place] Address [address] [place] [address]. [place] [address] Care Team Providers Care Computer Meteorologist Name Role Phone No Ref-Primary, Physician Primary Care Provider Robert [place] MD Unavailable Robert [place] MD Unavailable Luciana Cage PA-C Unavailable [phone] Robert [place] MD Unavailable [phone] Reason for Visit * Reason Onset Date Comments Refill Request 08/03/2023 sotalol HCl, AF, 80 MG TABS Encounter Details Date Type Department Care Team (Late st Contact Info) Description 08/03/2023 Telephone [facility] [address] [place] [address] Robert [place] MD [address] [facility] [address] [place] [address] Refill Request (sotalol HCl, AF, 80 MG [...] Lynn Oviedo - 08/03/2023 2:47 PM CDT [facility] Call Center Phone Message May a detailed message be left on voicemail: yes Reason for Call: Medication Refill Request Has the patient contacted the pharmacy for the refill? Yes Name of medication being requested: sotalol HCl, AF, 80 MG TABS Provider who prescribed the medication: [facility] [place], [place] - [address] Date medication is needed: 08/03/23 Action Taken: Message routed to: Other: Cardiology Travel Screening: Not Applicable Thank you! [facility] documented in this encounter Plan of Treatment Upcoming Encounters Date Type Department Care Team (Late st Contact Info) Description 11/28/2024 1:30 PM SUPERVISOR CUTTING AND BONING Office Visit [facility] [address] [facility] [address] [place] [phone] Robert [place] MD [address] [place] [id number] documented as of this encounter Visit Diagnoses Not on filedocumented in this encounter Care Teams Computer Meteorologist Relationship Specialty Start Date End Date No Ref-Primary, Physician PCP - General 07/01/21 Robert [place] MD [address] [place] [id number] Cardiovascular Disease 11/25/21 Robert [place] MD [address] [place] [address] Assigned Heart and Vascular Provider 04/11/22 10/01/23 Luciana Cage PA-C [address] [place] [address] Assigned Heart and Vascular Provider 10/28/23 11/25/23 Robert [place] MD [address] [place] [address] Assigned Heart and Vascular Provider 11/26/23 documented as of this encounter
[2024-11-27 15:52] LABS: Lactate* 1.4 mmol/L (0.5-1.9)
[2024-11-27 15:54] LABS: Basophils Absolute Auto 0.02 K/uL (0.00-0.30); Basophils Percent Auto 0.3 % (0.0-3.0); Eosinophils Absolute Auto 0.09 K/uL (0.00-0.50); Eosinophils Percent Auto 1.5 % (0.0-7.0); Hematocrit 41.6 % (37.0-53.0); Hemoglobin* 13.8 gm/dL (13.5-17.5); Immature Granulocytes Abs Auto 0.01 K/uL (0.00-0.30); Immature Granulocytes Pct Auto 0.2 %; Lymphocytes Absolute Auto 1.89 K/uL (0.90-2.90); Lymphocytes Percent Auto 31.6 % (20-44); Mean Corpuscular HGB Conc 33 gm/dL (32-36); Mean Corpuscular Hemoglobin 31 pg (26-34); Mean Corpuscular Volume 94 fL (80-100); Monocytes Percent Auto 12.9 % (0.0-11.0); Neutrophils Absolute Auto 3.21 K/uL (1.7-7.0); Neutrophils Percent Auto 53.5 % (42.0-72.0); Platelet Count* 153 K/uL (140-440); RDW Coefficient of Variation % 13.3 % (11.5-15.5); Red Blood Count 4.41 m/uL (4.30-5.90); White Blood Count* 5.99 K/uL (4.50-11.00)
[2024-11-27 16:00] LABS: Slide Review Reflex No
[2024-11-27 16:07] LABS: Albumin* 4.4 g/dL (3.3-5.0); Chloride* 105 mmol/L (96-114)
[2024-11-27 16:08] LABS: Potassium* 4.2 mmol/L (3.6-5.1); Sodium* 138 mmol/L (135-149)
[2024-11-27] MEDS: MORPHINE 4 MG/ML INJ IVP (16:09)
[2024-11-27] MEDS: ONDANSETRON 2 MG/ML inj 4 MG IVP (16:09)
[2024-11-27 16:10] LABS: Bilirubin Total* 1.6 mg/dL (0.1-1.5); Creatinine* 0.8 mg/dL (0.5-1.5); Estimated Glomerular Filt Rate 89 ml/min
[2024-11-27] MEDS: 0.9 % SODIUM CHLORIDE 500 ML 500 ML IV (16:10)
[2024-11-27 16:11] LABS: Alanine Aminotransferase* 18 U/L (4-50); Alkaline Phosphatase* 93 U/L (40-150); Anion Gap 6 mEq/L (7-15); Aspartate Amino Transferase* 24 U/L (12-35); Blood Urea Nitrogen* 21 mg/dL (7-30); Calcium* 9.3 mg/dL (8.4-10.6); Carbon Dioxide* 27 mmol/L (20-32); Glucose* 98 mg/dL (60-115); Lipase* 87 U/L (23-300); Total Protein* 7.1 g/dL (6.0-8.3)
[2024-11-27 16:13] VITALS: PULSE 64; O2SAT 96
[2024-11-27 16:14] LABS: C Reactive Protein* < 0.5 mg/dL (0.5-1.0)
[2024-11-27 16:14] LABS: Appearance Urine Cloudy (Clear); Bilirubin Urine 1+ (Negative); Blood Urine 3+ (Negative); Glucose Urine Trace (Negative); Ketones Urine Trace (Negative); Leukocyte Esterase Urine Negative (Negative); Nitrite Urine Negative (Negative); Protein Urine 3+ (Negative); Specific Gravity Urine >= 1.030 (1.000-1.030)
[2024-11-27 16:15] VITALS: PULSE 55; RESP 16; O2SAT 98
[2024-11-27 16:19] LABS: Color Urine Orange (Yellow); RBC Urine >100 (0-2)
[2024-11-27 16:20] LABS: Amorphous Sediment Urine Few; Bacteria Urine Many; Squamous Epithelial Cell Urine Few (None-Few); WBC Urine 0-2 (0-5)
[2024-11-27 16:30] VITALS: PULSE 56; O2SAT 97
--- NOTE | 2024-11-27 16:40 | CRLHL7_ITS ---
For Patients: As a result of the Century Cures Act, medical imaging exams and procedure reports are released immediately into your electronic medical record. You may view this report before your referring provider. If you have questions, please contact your health care provider. INDICATION: Abdominal pain. TECHNIQUE: Multiplanar CT examination of the abdomen and pelvis was performed without the use of intravenous contrast. COMPARISON: None. FINDINGS: Lower chest: No focal consolidation. Normal heart size. No pleural effusions or pneumothorax. Mitral annular calcifications. Coronary arterial calcifications. Subsegmental dependent atelectasis. Liver: Unremarkable. Gallbladder: Unremarkable. Biliary: Unremarkable. Pancreas: Within normal limits. Spleen: Unremarkable. Adrenal glands: Unremarkable. Renal/ureters/bladder: Multicystic right kidney, poorly characterized on this noncontrast examination. Mild right-sided hydronephrosis to the level of the distal ureter where there is an obstructing 2 mm urinary calculus. The left kidney is normal in size without obstructive uropathy. Decompressed bladder limits evaluation. Limited evaluation for renal masses without the use of intravenous contrast. Pelvis: Prosthetic brachytherapy seeds in place. Gastrointestinal: No bowel wall thickening or bowel obstruction. Normal appendix. Colonic diverticulosis without colonic wall thickening or pericolonic fat stranding. Mild colonic stool burden. Vasculature: No aortic aneurysm. Severe atherosclerotic calcifications. Lymph nodes: No pathologic lymphadenopathy by size criteria. Peritoneum: No free fluid or pneumoperitoneum. No drainable fluid collections. Abdominal wall/soft tissues: Unremarkable. Bones: No acute osseous abnormalities. Multilevel degenerative changes of the visualized thoracolumbar spine. Chronic bilateral L5 pars defects. Grade 1 anterolisthesis of L5 on S1 IMPRESSION: Mild right-sided hydroureteronephrosis to the level of the distal ureter where there is an obstructing 2 mm urinary calculus. Please note that all CT scans at this facility use dose modulation, iterative reconstruction, and/or weight-based dosing when appropriate to reduce radiation dose to as low as reasonably achievable. Dictated by Norris Levy MD @ 11/27/2024 5:58:10 PM (Electronically Signed)
[2024-11-27 16:45] VITALS: PULSE 58; O2SAT 97
[2024-11-27 17:00] VITALS: O2SAT 92
== END 2024-11-27 18:23 | disposition home or self-care (01) ==
PROVIDERS: Emergency Provider Family Medicine
DX: N20.2 Calculus of kidney with calculus of ureter (principal)
CPT/HCPCS: 36415; 74176; 80053; 81001; 83605; 83690; 85025; 86140; 87086; 94761; 96374; 96375; 99284; J2270; J2405; J7030

== ENCOUNTER 2025-04-17 11:23 | Outpatient (CLI) | payer MEDICARE, OTHER, SELFPAY | END 2025-04-17 11:24 | disposition home or self-care (01) | PROVIDERS: PCP Internal Medicine; Visit Provider Internal Medicine | DX: R63.4 Abnormal weight loss (principal); R82.90 Unspecified abnormal findings in urine | CPT/HCPCS: 80053; 84443; 87086 ==

== ENCOUNTER 2025-04-26 13:45 | Outpatient (CLI) | payer MEDICARE, OTHER, SELFPAY ==
--- NOTE | 2025-04-26 14:00 | CRLHL7_ITS ---
For Patients: As a result of the Century Cures Act, medical imaging exams and procedure reports are released immediately into your electronic medical record. You may view this report before your referring provider. If you have questions, please contact your health care provider. INDICATION: Hematuria TECHNIQUE: CT abdomen and pelvis without contrast, stone protocol. COMPARISON: 11/27/[address] FINDINGS: Kidney/ureters: There are couple of punctate stones in the right renal pelvis that were likely within a lower pole calyx on the previous study. Subtle calyceal stones remain in the inferior right kidney. There is a punctate stone in the mid to inferior left kidney. No hydronephrosis. Previous distal right ureteral stone appears to have passed. Benign-appearing cysts in the right kidney. Liver/gallbladder/bile ducts: Stable low-density liver lesions, likely benign. Gallbladder is normal without visualized stones or inflammation. No biliary dilatation. Spleen/pancreas/adrenal glands: The spleen, adrenal glands and pancreas are within normal limits. GI tract: Colonic diverticulosis without diverticulitis. Normal appendix. Abdominal wall/omentum/peritoneum: No free air or significant free fluid. No mass or inflammation. Vascular: Stable 3.3 cm infrarenal abdominal aortic aneurysm. Lymph nodes: No lymphadenopathy. Pelvis: Prostate radiation seeds. Lower chest: Unremarkable. IMPRESSION: 1. Previously seen distal right ureteral stone appears to have past. 2. Bilateral nonobstructing nephrolithiasis. 3. Stable 3.3 cm infrarenal abdominal aortic aneurysm. Please note that all CT scans at this facility use dose modulation, iterative reconstruction, and/or weight-based dosing when appropriate to reduce radiation dose to as low as reasonably achievable. Dictated by Jean Paul Myers MD @ 05/01/2025 10:53:25 AM (Electronically Signed)
== END 2025-04-26 13:46 | disposition home or self-care (01) ==
LOC: CT 13:46
PROVIDERS: PCP Internal Medicine; Visit Provider Internal Medicine
DX: R31.9 Hematuria, unspecified (principal); N20.0 Calculus of kidney; I71.40 Abdominal aortic aneurysm, without rupture, unspecified
CPT/HCPCS: 74176

== ENCOUNTER 2025-05-17 10:15 | Outpatient (CLI) | payer MEDICARE, OTHER, SELFPAY | END 2025-05-17 10:16 | disposition home or self-care (01) | LOC: NFLDREF 05-26 20:01 | PROVIDERS: PCP Internal Medicine; Referring Provider Internal Medicine; Visit Provider Internal Medicine | DX: R31.9 Hematuria, unspecified (principal) | CPT/HCPCS: 87086 ==

== ENCOUNTER 2025-07-16 12:13 | Emergency (ER) | payer MEDICARE, OTHER, SELFPAY ==
--- OUTSIDE RECORDS SUMMARY | 2025-07-16 12:15 | XMS_ITS | Clinical Summary ---
Author Organization [facility] Address [address] [place] [address] Care Team Providers Care Roll Repairer Name Role Phone Pcp, No Primary Care [...] disease invo lving coronary bypass graft of [place] heart without angina pectoris 08/24/2021 Overview (08/24/2021): Patient sees Dr. [place]. 1st stent 2004. 5v CABG 2014 Hypertension 08/24/2021 Hyperlipidemia 08/24/2021 Immunizations Immunization Administration Dates Next Due Influenza, High-dose Quadrivalent Inactivated Pneumococcal conj 13-Valent (Prevnar 13) 016 Td (Age >=7 Years) 10/04/2003 Social History Tobacco Use Types Packs/Day Years Used Date Smoking Tobacco: Never Assessed Sex and Gender Information Value Date Recorded Sex Assigned at Not on file Legal Sex Male 6:47 AM GOVERNMENT AUDITOR Gender Identity Not on file Sexual Orientation [...] 87.5 kg (193 lb) 08/24/2021 12:28 PM GOVERNMENT AUDITOR Height 188 cm (6' 2) 08/10/2021 10:31 AM GOVERNMENT AUDITOR Body Mass Index 24.78 08/10/2021 10:31 AM GOVERNMENT AUDITOR Plan of Treatment Health Maintenance Due Date Last Done Comments Depression screening for age 12+ 1956 BMI (ht and wt on same day) for age 18+ 1962 Zoster (shingles) series for age 50+ (1 of 2) 1994 Tetanus booster 10/04/2013 10/04/2003 Pneumococcal series for age 50+ (2 of 2 - PPSV23, PCV20, or PCV21) 10/05/2016 08/10/2016 RSV vaccine for adults or (1 - 1-dose 75+ series) 2019 COVID-19 vaccine series ( season) 2025 10/21/2021, 12/13/2020, 11/15/2020 Influenza Vaccine (#1) 2025 Hepatitis B series for 19+ Aged Out N o longer eligible based on patient's age to complete this topic Insurance MEDICARE PART A HB ONLY MEDICARE PART B HB ONLY COMMERCIAL MEDICARE PB ONLY Care Teams Roll Repairer Relationship Specialty Start Date End Date Pcp, No . PCP - General 08/10/21
--- OUTSIDE RECORDS SUMMARY | 2025-07-16 12:15 | XMS_ITS | Patient Health Record ---
Author Organization [facility] Billing Info Address [address] [place], [place] [id number] Support Name Relationship Address Phone Leif Duval Guarantor Unknown [phone] Reason For Referral No Information Plan Of Treatment No Information Insurance Providers Payer Name Payer Address Payer Phone Subscriber Number Group Number Insured Name Patient Relationship to Insured Coverage Start Date Coverage End Date [place] [address] [address] [place], [place] [id number] Leif Duval Self - patient is the insured 7 [employer] SU[employer]MENT [address] [place], [place] [id number] Leif Duval Self - patient is the insured 7
--- OUTSIDE RECORDS SUMMARY | 2025-07-16 12:15 | XMS_ITS | Clinical Summary ---
Author Organization [facility] Address [address] [place] [address] Care Team Providers Care Resources Representative Name Role Phone No Ref-Primary, Physician Primary Care Provider Robert Jenkins MD Unavailable Unavailab le Allergies No known active allergies Medications apixaban ANTICOAGULANT (ELIQUIS ANTICOAGULANT) 5 MG tabletIndications :PAF (paroxysmal atrial fibrillation) (H) Take 1 tablet (5 mg) by mouth 2 times daily. 180 tablet 3 5 Active sotalol HCl, AF, 80 MG TABSIndications:P aroxysmal atrial fibrillation (H) Take 1 tablet (80 mg) by mouth 3 times daily. 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 Overview (06/02/2021): s/p [...] Encounters Date Type Department Care Team Description 05/28/[address] [place] [phone] Priti Pierce MD Refill Request 05/28/2025 Refill [place] [id number] [facility] [address] [place] [phone] Priti Pierce MD Refill Request from Last 3 Months Family History Relation Status Comments Father Mother Social History Tobacco Use Types Packs/Day Years Used Date Smoking Tobacco: Never Smokeless Tobacco: Never Tobacco Cessation:Counseling Given: Not Answered Alcohol Use Standard Drinks/Week Comments Never 0 (1 standard drink = 0.6 oz pur e alcohol) PHQ-2 Answer Date Recorded PHQ-2 Score 0 12/05/2024 Adolescent Education Answer Date Record ed Getting School Help Needed Not on file 06/26 Sex and Gender Information Value Date Recorded Sex Assigned at Not on file Legal Sex Male 3:50 PM CDT Gender Identity Not on file Sexual Orientation Not on file Last Filed Vital Signs Vital Sign Reading Time Taken Comments Blood Pressure 122/64 12/05/2024 3:20 PM MACHINE ACCOUNTANT Pulse 64 12/05/2024 3:20 PM MACHINE ACCOUNTANT Temperature - - Respiratory Rate - - Oxygen Saturation 96% 05/16/2024 12:30 PM CDT Inhaled Oxygen Concentration - - Weight 81.2 kg (179 lb) 12/05/2024 3:20 PM MACHINE ACCOUNTANT Height 188 cm (6' 2) 12/05/2024 3:20 PM MACHINE ACCOUNTANT Body Mass Index 22.98 12/05/2024 3:20 PM MACHINE ACCOUNTANT Plan of Treatment Health Maintenance Due Date Last Done Comments ADVANCE CARE PLANNING 1945 ANNUAL REVIEW OF HM ORDERS 1944 ZOSTER VACCINE (1 of 2) 1994 DTAP/TDAP/TD VACCINE (1 - Tdap) 10/05/2003 10/04/2003 FALL RISK ASSESSMENT 2009 PNEUMOCOCCAL VACCINE 50+ YEARS (2 of 2 - PPSV23, PCV20, or PCV21) 10/05/2016 08/10/2016 RSV VACCINE (1 - 1-dose 75+ series) 2019 MEDICARE ANNUAL WELLNESS VISIT 10/20/2019 10/20/2018 COVID-19 VACCINE ( - season) 2025 10/21/2021, 12/13/2020, 11/15/2020 INFLUENZA VACCINE (#1) 2025 , 08/06/2022, 07/14/2019, Additional history exists BMP 11/27/2025 11/27/2024, 05/04, 05/21/2023, Additional history exists LIPID 11/27/2025 11/27/2024, 05/04, 05/21/2023, Additional history exists PHQ-2 (once per calendar year) Completed 12/05/2024, 05/16/2024, 05/24/2023 HPV VACCINE (No Doses Required) Completed MENINGITIS VACCINE Aged Out No longer eligible based on patient's age to complete this topic Procedures Procedure Name Priority Date/Time Associated Diagnosis Comments LIPID PROFILE Routine 11/27/2024 9:25 AM MACHINE ACCOUNTANT 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 BASIC METABOLIC PANEL Routine 11/27/2024 9:25 AM MACHINE ACCOUNTANT 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 Yes 11/28/2024 2:04 AM [facility] Blood STRUCTURE OF LEFT UPPER LIMB / Unknown Venipuncture / Unknown 11/27/2024 9:25 AM MACHINE ACCOUNTANT 11/27/2024 9:[address] [facility] - 11/28/2024 2:04 AM MACHINE ACCOUNTANT Cholesterol Desirable: < 200 mg/dL Borderline High: 200 - 239 mg/dL High: >= 240 mg/dL Triglycerides Normal: < 150 mg/dL Borderline High: 150 - 199 mg/dL High: 200-499 mg/dL Very High: >= 500 mg/dL Direct Measure HDL Female: >= 50 mg/dL Male: >= 40 mg/dL LDL Cholesterol Desirable: < 100 mg/dL Above Desirable: 100 - 129 mg/dL Borderline High: 130 - 159 mg/dL High: 160 - 189 mg/dL Very High: >= 190 mg/dL Non HDL Cholesterol Desirable: < 130 mg/dL Above Desirable: 130 - 159 mg/dL Borderline High: 160 - 189 mg/dL High: 190 - 219 mg/dL Very High: >= 220 mg/dL us Robert Jenkins MD LAB - BLOOD ORDERABLES Fin al Result [facility] [place] [facility] [address] [place] [address], [facility] Acute Care Lab [address] Lab (1st floor, no room number) [place] [address] * (ABNORMAL) Basic metabolic panel (11/27/2024 9:25 AM MACHINE ACCOUNTANT) Sodium 139 135 - 145 mmol/L 11/27/2024 10:23 AM [facility] Potassium 4.2 3.4 - 5.3 mmol/L 11/27/2024 10:23 AM [facility] Chloride 104 98 - 107 mmol/L 11/27/2024 10:23 AM [facility] Carbon Dioxide (CO2) 25 22 - 29 mmol/L 11/27/2024 10:23 AM [facility] Anion Gap 10 7 - 15 mmol/L 11/27/2024 10:23 AM [facility] Urea Nitrogen 19.1 8.0 - 23.0 mg/dL 11/27/2024 10:23 AM [facility] Creatinine 0.80 0.67 - 1.17 mg/dL 11/27/2024 10:23 AM [facility] GFR Estimate 89 >60 mL/min/1.7 3m2 11/27/2024 10:23 AM [facility] Comment:eGFR calculated us2020 CKD-EPI equation. Calcium 9.3 8.8 - 10.4 mg/dL 11/27/2024 10:23 AM [facility] Glucose 104(H) 70 - 99 mg/dL 11/27/2024 10:23 AM [facility] Blood STRUCTURE OF LEFT UPPER LIMB / Unknown Venipuncture / Unknown 11/27/2024 9:25 AM MACHINE ACCOUNTANT 11/27/2024 9:25 AM MACHINE ACCOUNTANT Robert Jenkins MD LAB - BLOOD ORDERABLES Fin al Result LABORATORY [facility] Acute Care Lab [address] Lab (1st floor, no room number) [place] [address], [facility] from Last 3 Months or Most Recently Relevant to Health Maintenance Insurance [place] [address] [address] [place] [id number] COMMERCIAL MEDICARE COMMERCIAL Care Teams Resources Representative Relationship Specialty Start Date End Date No Ref-Primary, Physician PCP - General 07/01/21 Robert Jenkins MD Assigned Heart and Vascular Provider 11/26/23
[2025-07-16 12:28] VITALS: BP 123/79; PULSE 77; RESP 16; TEMP 36.4; O2SAT 98; BMI 23.1
--- NOTE | 2025-07-16 13:13 | CRLHL7_ITS ---
For Patients: As a result of the Cures Act, medical imaging exams and procedure reports are released immediately into your electronic medical record. You may view this report before your referring provider. If you have questions, please contact your health care provider. INDICATION: Injury. Ankle/calf pain. TECHNIQUE: Left ankle three views. COMPARISON: None. FINDINGS: No acute fracture or dislocation. Ijiy-nd-tehkpacd degenerative changes of the tibiotalar joint. Calcaneal enthesophytes. No other osseous abnormality. Soft tissues as imaged are unremarkable. IMPRESSION: No acute osseous abnormality. Dictated by Errol Meyer MD @ 07/16/2025 1:32:58 PM (Electronically Signed)
--- OUTSIDE RECORDS SUMMARY | 2025-07-16 13:36 | XMS_ITS | Data Portability ---
Author Organization [place] 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 Name Role Phone MUSA PARTIDA Primary Care Provider [phone] Assessment Encounter Date Assessment Date Assessment LastModified by Organization Details LastModified Time 06/18/2025 06/18/2025 80yo with gross hematuria [email or web address] Not available 06/18/2025 12:12:58 Plan of Treatment Reminders Order Date Submit Date Provider Last Modified By Organization Details Last Modified Time Details Appointments CYSTO-15 2024 10:45A M Rick Malone MD Not available Not available Not available Lab urinalysi s, dipstick 2024 025 [email or web address] [address], [address], [place], [address], 06/18/2025 12:13:11 Referral None recorded. Procedures None recorded. Surgeries None recorded. Imaging CT, urogram - gross hematuria 2024 025 BHAVESH [facility] [place], [address], [place], [address], 07/03/2025 02:05:27 Medication Orders None recorded. Patient TargetsNo targets recorded. Patient InstructionsNo instructions recorded. Reason for Referral None Reported. Results Created Date Observation Date Name Description Value Unit Range Abnormal Flag Note LastModifiedBy Organization Detail LastModifiedTime 06/18/2006/18/2025 urina lysis , dipst ick BLOOD Small (10 RBC/uL ) Not Available [address], [place], [address], 06/18/2025 11:47:16 06/18/20 25 06/18/2025 urina lysis , dipst ick BILIRUBIN Negati ve Not Available [address], [place], [address], 06/18/2025 11:47:16 06/18/20 25 06/18/2025 urina lysis , dipst ick UROBILINOGEN 0.2 mg/dL (Norm) Not Available [address], [place], [address], 06/18/2025 11:47:16 06/18/20 25 06/18/2025 urina lysis , dipst ick KETONES Negati ve Not Available [address], [place], [address], 06/18/2025 11:47:16 06/18/20 25 06/18/2025 urina lysis , dipst ick PROTEIN Negati ve Not Available [address], [place], [address], 06/18/2025 11:47:16 06/18/20 25 06/18/2025 urina lysis , dipst ick NITRITES Negati ve Not Available [address], [place], [address], 06/18/2025 11:47:16 06/18/20 25 06/18/2025 urina lysis , dipst ick GLUCOSE Negati ve Not Available [address], [place], [address], 06/18/2025 11:47:16 06/18/20 25 06/18/2025 urina lysis , dipst ick p.H. 5.0 Not Available [facility] [address], [place], [address], 06/18/2025 11:47:16 06/18/20 25 06/18/2025 urina lysis , dipst ick S.G. (Specific [place]) 1.025 Not Available [facility] [address], [place], [address], 06/18/2025 11:47:16 06/18/20 25 06/18/2025 urina lysis , dipst ick LEUKOCYTES Negati ve Not Available [facility] [address], [place], [address], 06/18/2025 11:47:16 06/11/20 25 04/26/2025 CT, abdom en + pelvi s, w/o contr ast No observ ation record ed. [email or web address] Not Available 06/11 09:08:41 07/03/20 25 07/02/2025 CT ABD wo&W & pelv wo&W (no oral cont) No observ ation record ed. [email or web address] [facility] [address], [place], [address], 07/03/2025 08:58:23 07/03/20 25 07/02/2025 CT, urogr am No observ ation record ed. BHAVESH [facility] [address], [place], [address], 07/03/2025 08:54:42 Result Notes None recorded. Problems Name Problem SNOMED Code Status Onset Date Resolution Date Notes Provider Name and Address Organization Details Recorded Time Coronary arterioscleros is 54514086 Active Regla carey [facility] 12:39:14 Mixed hyperlipidemia 081489545 Active [place] Es[facility]ivel [facility] 12:39:20 Non-rheumatic mitral regurgitation 929608898 Active Regla carey [facility] 5 12:39:27 Paroxysmal atrial fibrillation 430071884 Active Regla carey [facility] 5 12:39:32 Osteoarthritis 060917445 [facility] 12:39:38 Essential hypertension 61899992 [facility] 5 14:47:50 Benign prostatic hyperplasia 764566527 Active 2018 [facility] 12:40:10 Malignant neoplasm of prostate 081592406 Active [facility] 5 14:48:07 Pulmonary hypertension 55117935 Active 2021 [facility] 12:39:07 Rashad hematuria 840464300 Active 2024 Rick Malone MD [address] [place] [address], [phone] [place] [address] 5 11:35:52 Problem Notes None recorded. Procedures Surgical History Date Name Laterality Status Provider Name and Address Organization Details Recorded Time 06/18/20 25 Bladder Scan completed Regla Shetty [facility] 06/18/2025 12:02:32 10/13/19 15 Diagnostic colonoscopy completed Not Available Health Note 06/15/2025 14:12:21 Insert epicard eltrd open completed Not Available Health Note 06/15/2025 14:12:21 Imaging Results None recorded. Procedure Notes None recorded. Medical Equipment None Reported. Allergies No known drug allergies Medications Name Sig Start Date Stop Date Status Note LastModified by Organization Details LastModified Time atorvastati n 40 mg tablet 40mg 1/day active Not Available Not Available No t Available hydrocodone 5 mg-acetamin ophen 325 mg tablet TAKE 1 TABLET BY MOUTH EVERY 4-6 HOURS NEEDED FOR PAIN* 06/18 completed Not Available Not Available Not Available mupirocin 2 % topical ointment APPLY 1 APPLICATI ON TOPICALLY TWICE A DAY FOR 7 DAYS 06/18 completed Not Available Not Available Not Available ondansetron 4 mg disintegrat ing tablet TAKE 1 TABLET BY MOUTH EVERY 8 HOURS NEEDED FOR NAUSEA AND VOMITING* 06/18 completed Not Available Not Available Not Available Sotalol AF 80 mg tablet 80mg 3/day active Not Available Not Available No t Available Eliquis 5 mg tablet Take 1 tablet twice a day by oral route. active Not Available Not Available No t Available Eliquis 2.5 mg tablet 5mg 2/day 06/18 completed Not Available Not Available Not Available Vitals Date Recorded Body mass index (BMI) Body height Body weight Provider Name and Address Organization Details Last Updated DateTime 06/18/2025 23.1 kg/m2 187.96 cm 41388.7236 696618 g Not Available Health Note 06/18/2025 11:29:52 Social History Question Answer Notes LastModified by [employer] Details LastModified Time Tobacco Smoking Status Never Smoker Not Available Health Note 06/15/2025 14:12:21 Do You Have An Advance Directive? No [email or web address] Information not available 06/15/2025 What Is Your Level Of Caffeine Consumption? None [email or web address] Information not available 06/15/2025 How Much Tobacco Do You Chew? None [email or web address] Information not available 06/15/2025 Do You Have A Medical Power Of Classroom Monitor? No [email or web address] Information not available 06/15/2025 What Was The Date Of Your Most Recent Tobacco Screening? 06/18/2025 [email or web address] Information not available 06/15/2025 What Is Your Relationship Status? [email or web address] Information not available 06/15/2025 Are You Sexually Active? No [email or web address] Information not available 06/15/2025 How Many Days In The Past Year Have You Consumed 5 Or More Drinks? 0 [email or web address] Information no t available 06/15/2025 Sex: Unknown Functional Status Question Answer Note LastModified by Private Practiceizat ion Details LastModified Time Do you use any illicit or recreational drugs? No [email or web address] Information not available 06/15/2025 Do you or have you ever used any other forms of tobacco or nicotine? No [email or web address] Information not available 06/18/2025 What is your level of alcohol consumption? None [email or web address] Information not available 06/15/2025 Do you or have you ever used smokeless tobacco? Never used smokeless tobacco [email or web address] Information not available 06/15/2025 Do you or have you ever used e-cigarettes or vape? Never used electronic cigarettes [email or web address] Information not available 06/15/2025 Mental Status None recorded. Family History Relationship Description Onset Age of this Age Resolved Age Notes LastModified by Organization Details LastModified Time Father No current problems or disability [email or web address] Not available 06/15 14:12:20 Mother No current problems or disability [email or web address] Not available 06/15 14:12:20 Medical History Condition Response Sexually Transmitted Infection N Diabetes N Bleeding Disorder N High Blood Pressure N Kidney Stones N Cancer Y Lung Disease N Depression N High Cholesterol N GERD/Acid Reflux N Heart Disease Y Immunizations Vaccine Type Date Status Note Provider Nam e and Address Organization Details Recorded Time SARS-COV-2 (COVID-19) vaccine, UNSPECIFIED 3 completed Not Available Health Note 06/15/2025 14:12:23 pneumococcal, unspecified formulation 1 completed Not Available Health Note 06/15/2025 14:12:24 zoster live 9 completed Not Available Health Note 06/15/2025 14:12:24 influenza, unspecified formulation 3 completed Not Available Health Note 06/15/2025 14:12:24 Past Encounters Encounter ID Performer Location Encounter Start Date Encounter Closed Date Diagnosis/Indication Diagnosis SNOMED-CT Code Diagnosis ICD10 Code Diagnosis IMO Codes Diagnosis Note [id number] Rick Malone MD [facility] [address] [place] [address] 06/18/2025 11:29:35 06/18/2025 12:19:36 Rashad hematuria [id number] R31.0 [id number] We discussed the current guidelines as outlined by the [place] [employer] n regarding the evaluation of patients at risk for urothelial cell carcinoma. Given they are having gross hematuria, it is recommende d that they proceed with local cystoscopy and contrast enhanced triphasic upper tract imaging. Health Concerns Section Related Observation LastModified by Organization Detai ls LastModified Time None Recorded Concern Status LastModified by Organization Details LastModified Time None Recorded Advance Directives Directive N: Payers Insurance Date Sequence Insurance Name Policy Number Policy Luu Covered Member ID Luu Member ID Guarantor Name 05/30/2025 2 [employer] Leif Duval [id number] Leif Duval 06/15/2025 1 MEDICARE B-[place]: [employer] [facility] Leif Duval [id number] Leif Duval Notes Date Note Type Note Provider Name and Address Organization Details Recorded Time 06/18/2025 text/html 80yo m presenting for eval of gross hematuria notice some persistent, recurring hematuria. did feel like he maybe passed a kidney stone few months ago but has persisted sinceno fhx gu cancernonsmokerno blood thinner good urinatino pattern without issue. feels he empties his bladder. no uti ct non con from 04/2025 showing a passed ureteral stone. no contrast imagingcr 0.8 Rick Malone MD [address] [place] [address],[address], [place], [address], [place] [facility] 06/18/2025 12:13:28
--- OUTSIDE RECORDS SUMMARY | 2025-07-16 13:36 | XMS_ITS | Continuity of Care Document ---
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 Name Role Phone MUSA PARTIDA Primary Care Provider [phone] Assessment Encounter Date Assessment Date Assessment LastModified by Organization Details LastModified Time 06/18/2025 06/18/2025 80yo with gross hematuria [email or web address] Not available 06/18/2025 12:12:58 Plan of Treatment Reminders Order Date Submit Date Provider Last Modified By Organization Details Last Modified Time Details Appointments CYSTO-15 2024 10:45A M Rick Malone MD Not available Not available Not available Lab urinalysi s, dipstick 2024 025 [email or web address], [address] [facility] [address], [address], [place], [address], 06/18/2025 12:13:11 Referral None recorded. Procedures None recorded. Surgeries None recorded. Imaging CT, urogram - gross hematuria 2024 025 BHAVESH [facility] [place], [address], [address], [place], [address], 07/03/2025 02:05:27 Medication Orders None recorded. Patient TargetsNo targets recorded. Patient InstructionsNo instructions recorded. Reason for Referral None Reported. Results Created Date Observation Date Name Description Value Unit Range Abnormal Flag Note LastModifiedBy Organization Detail LastModifiedTime 06/18/20 25 06/18/2025 urina lysis , dipst ick BLOOD Small (10 RBC/uL ) Not Available [facility] [address], [place], [address], 06/18/2025 11:47:16 06/18/20 25 06/18/2025 urina lysis , dipst ick BILIRUBIN Negati ve Not Available [address], [place], [address], 06/18/2025 11:47:16 06/18/20 25 06/18/2025 urina lysis , dipst ick UROBILINOGEN 0.2 mg/dL (Norm) Not Available [address], [place], [address], 06/18/2025 11:47:16 06/18/20 25 06/18/2025 urina lysis , dipst ick KETONES Negati ve Not Available [address], [place], [address], 06/18/2025 11:47:16 06/18/20 25 06/18/2025 urina lysis , dipst ick PROTEIN Negati ve Not Available [address], [place], [address], 06/18/2025 11:47:16 06/18/20 25 06/18/2025 urina lysis , dipst ick NITRITES Negati ve Not Available [address], [place], [address], 06/18/2025 11:47:16 06/18/20 25 06/18/2025 urina lysis , dipst ick GLUCOSE Negati ve Not Available [address], [place], [address], 06/18/2025 11:47:16 06/18/20 25 06/18/2025 urina lysis , dipst ick p.H. 5.0 Not Available [facility] [address], [place], [address], 06/18/2025 11:47:16 06/18/2006/18/2025 urina lysis , dipst ick S.G. (Specific [place]) 1.025 Not Available [facility] [address], [place], [address], 06/18/2025 11:47:16 06/18/20 25 06/18/2025 urina lysis , dipst ick LEUKOCYTES Negati ve Not Available [facility] [address], [place], [address], 06/18/2025 11:47:16 06/11/20 25 04/26/2025 CT, abdom en + pelvi s, w/o contr ast No observ ation record ed. [email or web address] Not Available 06/11 09:08:41 07/03/20 25 07/02/2025 CT ABD wo&W & pelv wo&W (no oral cont) No observ ation record ed. [email or web address] [facility] [place] [address] [facility] [address], [place], [address], 07/03/2025 08:58:23 07/03/20 25 07/02/2025 CT, urogr am No observ ation record ed. BHAVESH [facility] [address], [place], [address], 07/03/2025 08:54:42 Result Notes None recorded. Problems Name Problem SNOMED Code Status Onset Date Resolution Date Notes Provider Name and Address Organization Details Recorded Time Coronary arterioscleros is 43174683 Active Regla carey [facility] 12:39:14 Mixed hyperlipidemia 814360361 Active [place] Esquivel [facility] 12:39:20 Non-rheumatic mitral regurgitation 319057970 Active Regla carey [facility] 5 12:39:27 Paroxysmal atrial fibrillation 984927596 Active Regla carey [facility] 5 12:39:32 Osteoarthritis 151801092 Active Regla carey [facility] 5 12:39:38 Essential hypertension 51094368 Active Regla carey [facility] 5 14:47:50 Benign prostatic hyperplasia 385890590 [facility] 12:[facility]10 Malignant neoplasm of prostate 270200016 [facility] 14:48:07 Pulmonary hypertension 82610863 [facility] 12:39:07 Rashad hematuria 667967799 Active 2024 Rick Malone MD [address] [place] [address], [address] 5 11:35:52 Problem Notes None recorded. Procedures Surgical History Date Name Laterality Status Provider Name and Address Organization Details Recorded Time 06/18/20 25 Bladder Scan completed Regla Shetty [facility] 06/18/2025 12:02:32 10/13/19 15 Diagnostic colonoscopy completed [...] Updated DateTime 06/18/2025 23.1 kg/m2 187.96 cm 32703.7236 808281 g Not Available Health Note 06/18/2025 11:29:52 Social History Question Answer Notes LastModified by Organizat ion Details LastModified Time Tobacco Smoking Status Never Smoker Not Available Health Note 06/15/2025 14:12:21 Do You Have An Advance Directive? No [email or web address] Information not available 06/15/2025 What Is Your Level Of Caffeine Consumption? None [email or web address] Information not available 06/15/2025 How Much Tobacco Do You Chew? None [email or web address] Information not available 06/15/2025 Do You Have A Medical Power Of Weight Yardage Checker? No [email or web address] Information not available 06/15/2025 What [...] Functional Status Question Answer Note LastModified by Organizat ion Details LastModified Time Do you use any illicit or recreational drugs? No [email or web address] Information not available 06/15/2025 Do you or have you ever used any other forms of tobacco or nicotine? No [email or web address] Information not available 06/18/2025 What is your level of alcohol consumption? None [email or web address] Information not available 06/15/2025 Do you or [...] Time Father No current problems or disability [email or web address] Not available 06/15 14:12:20 Mother No current problems or disability [email or web address] Not available 06/15 14:12:20 Medical History Condition Response Diabetes N Sexually Transmitted Infection N Bleeding Disorder N High Blood Pressure N Kidney Stones N Cancer Y Depression N Lung Disease N High Cholesterol N GERD/Acid Reflux N [...] ICD10 Code Diagnosis IMO Codes Diagnosis Note [id number] Rick [facility] [address] [address] 06/18/2025 11:29:35 06/18/2025 12:19:36 Rashad hematuria [id number] R31.0 [id number] We discussed the current guidelines as outlined by the [facility] [facility] regarding the evaluation of patients at risk for urothelial cell carcinoma. Given they are having gross hematuria, it is recommende d that they proceed with local cystoscopy and contrast enhanced triphasic upper tract imaging. Health Concerns Section Related Observation LastModified by Organization Detai ls LastModified Time None Recorded Concern Status LastModified by Organization Details LastModified Time None Recorded Payers Encounter Date Sequence Insurance Name Policy Number Policy Luu Covered Member ID Luu Member ID Guarantor Name 06/18/2025 2 [facility] INSURANCE [employer] Leif Duval [id number] Leif Duval 06/18/2025 1 MEDICARE [place] [employer] [facility] Leif Duval [id number] Leif Duval Notes Date Note Type Note [...] no contrast imagingcr 0.8 Rick Malone MD [address] [facility] [address], [place], [address], [place] [facility] 06/18/2025 12:13:28
--- NOTE | 2025-07-16 16:14 | ED.GENADULT ---
HPI - General Adult General Date Seen: 07/16/25 Chief complaint: Extremity Pain/Injury, Lower Stated complaint: L ankle/calf pain Time Seen by Provider: 07/16/25 13:07 History of Present Illness HPI narrative: Patient is a very pleasant 80-year-old here for evaluation of his left ankle. He is very active, continues to do a lot of walking, jogging, strength training. For the past couple weeks he has been having intermittent problems with pain and swelling in his left ankle. It bothers him mostly in the anterior ankle, he says it will kind of swell up and hurt and then it will settle back down. The last time he developed some bruising on the top of his foot along with little bit of swelling. It was bothering him a lot yesterday although it is feeling somewhat better today. No specific injury. He is anticoagulated on Eliquis due to atrial fibrillation. Related Data Home Medications ?Medication ?Instructions ?Recorded ?Confirmed apixaban 5 mg tablet (Eliquis) 5 mg PO BID 04/02/23 07/16/25 atorvastatin 40 mg tablet 40 mg PO DAILY 04/02/23 07/16/25 sotalol 80 mg tablet (Sotalol AF) 80 mg PO Q8H 04/02/23 07/16/25 Allergies Allergy/AdvReac Type Severity Reaction Status Date / Time No Known Drug Allergies Allergy Verified 07/16/25 12:35 Review of Systems Status of ROS: Reports: 6 or more systems reviewed and unremarkable except as noted in History and below [facility] Medical History Hematuria ?R31.9 - Hematuria, unspecified (ICD-10) UTI (urinary tract infection) ?N39.0 - Urinary tract infection, site not specified (ICD-10) Weight loss ?R63.4 - Abnormal weight loss (ICD-10) Dry eye syndrome ?H04.129 - Dry eye syndrome of unspecified lacrimal gland (ICD-10) Impaired fasting glucose ?R73.01 - Impaired fasting glucose (ICD-10) Mixed hyperlipidemia ?E78.2 - Mixed hyperlipidemia (ICD-10) Mild ascending aorta dilatation ?I77.810 - Thoracic aortic ectasia (ICD-10) Coronary artery disease ?I25.10 - Atherosclerotic heart disease of [place] coronary artery without angina pectoris (ICD-10) Paroxysmal atrial fibrillation ?I48.0 - Paroxysmal atrial fibrillation (ICD-10) Essential hypertension ?I10 - Essential (primary) hypertension (ICD-10) Pulmonary hypertension ?I27.20 - Pulmonary hypertension, unspecified (ICD-10) History of prostate cancer ?Z85.46 - Personal history of malignant neoplasm of prostate (ICD-10) Osteoarthritis of right shoulder ?M19.011 - Primary osteoarthritis, right shoulder (ICD-10) Right rotator cuff tear arthropathy ?M75.101 - Unspecified rotator cuff tear or rupture of right shoulder, not specified as traumatic (ICD-10) ?M12.811 - Other specific arthropathies, not elsewhere classified, right shoulder (ICD-10) Chronic anticoagulation ?Z79.01 - penitentiary (current) use of anticoagulants (ICD-10) Surgical History History of maze procedure ?Z98.890 - Other specified postprocedural states (ICD-10) History of coronary artery bypass graft (2014) ?Z95.1 - Presence of aortocoronary bypass graft (ICD-10) History of coronary artery stent placement (2004) ?Z95.5 - Presence of coronary angioplasty implant and graft (ICD-10) Cataract (lens) fragments in eye following cataract surgery ?H59.029 - Cataract (lens) fragments in eye following cataract surgery, unspecified eye (ICD-10) H/O nasal septoplasty ?Z98.890 - Other specified postprocedural states (ICD-10) Social History What is your current living situation?: I presently have a place to live Problems where you live: declined to answer In the past 12 months, utilities in danger of being shut off: no In past 12 months, lack of transportation kept you from medical appts, meetings, work, or getting things needed for daily living: no In the past 12 mos, have been you worried that your food would run out before you had money to buy more?: never true In the past 12 mos, the food you bought just didn't last and you didn't have money to buy more?: never true Smoking Status: Never smoker Do you use any of these nicotine containing products: None Second hand tobacco smoke exposure: No How often does anyone, including family, friends and others, physically hurt you: never How often does anyone, including family, friends and others, insult or talk down to you: never How often does anyone, including family, friends and others, threaten you with harm: never How often does anyone, including family, friends and others, scream or curse at you: never Exam Narrative: Exam Narrative: Vital signs reviewed. In general, alert, well-appearing elderly male. Extremities: Examination of the left ankle shows a little nonspecific swelling, some tenderness in the anterior ankle, no tenderness of the malleoli or Achilles. He does have a little faint bruising and mild swelling noted in the dorsum of the midfoot, no tenderness here. Distal CMS intact. No tenderness of the proximal fibula. Const: Vital Signs, click to edit/add: Vital Signs - 24 hr 07/16/25 12:28 Temperature 97.6 F Pulse Rate [Pulse Oximeter] 77 Respiratory Rate 16 Blood Pressure [Ri ght Upper Arm] 123/79 Pulse Oximetry 98 Oxygen Delivery Me thod Room Air Course Course ED Course: I did do an x-ray, by my review this showed some degenerative changes but no fracture. Read by Radiology as showing degenerative changes at the talotibial or joint but no fracture dislocation. I do not feel significant effusion, there is no erythema warmth to suggest an inflammatory arthritis such as gout or infection. Does not appear to represent hemarthrosis. I recommended that we try conservative measures, have him decrease activity a little bit, gave him a stirrup splint to use when he is up and about for the next week or so, he can use ice and/or heat. Will see how it responds to conservative measures. If it does not improve, recommend primary care follow-up. Return any time for significant worsening such as erythema, fevers, inability to bear weight. Vital Signs Vital signs: Initial Vital Signs Temperature 97.6 F 07/16/25 12:28 Temperature Source Temporal Artery Scan 07/16/25 12:28 Pulse Rate 77 07/16/25 12:28 Respiratory Rate 16 07/16/25 12:28 Blood Pressure 123/79 07/16/25 12:28 Blood Pressure Mean 93 07/16/25 12:28 Blood Pressure Position Sitting 07/16/25 12:28 Pulse Oximetry 98 07/16/25 12:28 Oxygen Delivery Method Room Air 07/16/25 12:28 Vital Signs Temperature 97.6 F 07/16/25 12:28 Pulse Rate 77 07/16/25 12:28 Respiratory Rate 16 07/16/25 12:28 Blood Pressure 123/79 07/16/25 12:28 Pulse Oximetry 98 07/16/25 12:28 Oxygen Delivery Method Room Air 07/16/25 12:28 Temperature 97.6 F 07/16/25 12:28 Pulse Rate 77 07/16/25 12:28 Respiratory Rate 16 07/16/25 12:28 Blood Pressure 123/79 07/16/25 12:28 Pulse Oximetry 98 07/16/25 12:28 Oxygen Delivery Method Room Air 07/16/25 12:28 Medical Decision Making Imaging Data Ankle x-ray: Attestation: I have reviewed the pertinent imaging results. Radiologist's impression: Patient: Leif Duval MR#: [id number] : 1945 Acct:[id number] Loc: ED Service Date: 07/16/[address]: Ordering Physician: Shaunna Callahan M.D. Date of Service: 07/16/25 Procedure(s): XR ankle LT min 3V Accession Number(s): [id number] cc: Shaunna Callahan M.D.; Roderick Justice M.D.~ For Patients: As a result of the Cures Act, medical imaging exams and procedure reports are released immediately into your electronic medical record. You may view this report before your referring provider. If you have questions, please contact your health care provider. INDICATION: Injury. Ankle/calf pain. TECHNIQUE: Left ankle three views. COMPARISON: None. FINDINGS: No acute fracture or dislocation. [id number]-uaiflwjw degenerative changes of the tibiotalar joint. Calcaneal enthesophytes. No other osseous abnormality. Soft tissues as imaged are unremarkable. IMPRESSION: No acute osseous abnormality. Dictated by Errol Meyer MD @ 07/16/2025 1:32:58 PM Discharge Plan Discharge Clinical Impression: Ankle pain, right Patient Disposition: Home, Self-Care Condition: Stable Instructions: Arthralgia (ED) Additional Instructions: Use the stirrup splint when you are up and walking around for the next week or so. Minimize how much lower body work you are doing for that time, focus more on upper body strengthening. You can use ice and/or heat on your ankle if these seem to help you feel better. If symptoms are recurrent/persistent, please follow-up with Dr. Justice. X-rays today show some arthritis but no other abnormal findings. Prescriptions: No Action Eliquis 5 mg tablet 5 mg PO BID sotalol [Sotalol AF] 80 mg tablet 80 mg PO Q8H atorvastatin 40 mg tablet 40 mg PO DAILY Follow Up/Referrals: Roderick Justice MD [Primary Care Provider, Internal Medicine] Stand Alone Forms: [employer] Info Instructions
== END 2025-07-16 14:08 | disposition home or self-care (01) ==
PROVIDERS: Emergency Provider Emergency Medicine; PCP Internal Medicine
DX: M25.572 Pain in left ankle and joints of left foot (principal); Y93.B9 Activity, other involving muscle strengthening exercises
CPT/HCPCS: 73610; 99283; 99284